=== PATIENT | female | born 1975 | race Caucasian/White ===

== ENCOUNTER → 2017-07-29 | Outpatient (CLI) | payer OTHER | END | disposition home or self-care (01) | LOC: RADECHMAIN 13:01 | PROVIDERS: ATTEND Internal Medicine | DX: R55 Syncope and collapse (principal) | CPT/HCPCS: 93225; 93226 ==

== ENCOUNTER → 2020-04-23 | Outpatient (CLI) | payer OTHER ==
--- NOTE | 2020-04-24 08:31 | MM ---
Reason for exam: screening (asymptomatic). Baseline mammogram. History: Patient has history of other cancer at age 36. Physical Findings: Nurse did not find any significant physical abnormalities on exam. MG Screening Mammo w CAD Bilateral CC, MLO, and XCCL view(s) were taken. The breast tissue is heterogeneously dense. This may lower the sensitivity of mammography. Focal asymmetry right CC, not on XCCL. These results were verbally communicated with the patient and result sheet given to the patient on 04/23/20. ASSESSMENT: Benign, BI-RAD 2 RECOMMENDATION: Routine screening mammogram of both breasts in 1 year.
== END | disposition home or self-care (01) ==
LOC: RADMAMWWP 13:28
PROVIDERS: ATTEND Obstetrics & Gynecology
DX: Z12.31 Encounter for screening mammogram for malignant neoplasm of breast (principal)
CPT/HCPCS: 77067

== ENCOUNTER 2021-01-13 17:18 | Emergency (ER) | payer OTHER ==
[2021-01-13 18:33] VITALS: RESP 18; TEMP 98.6
[2021-01-13 19:06] LABS: Basophils % (A) 0 %; Eosinophils # (A) 0.2 k/uL (0-0.7); Eosinophils % (A) 2 %; HCT 39.9 % (34.0-46.0); HGB 13.7 gm/dL (11.4-16.0); Lymphocytes # (A) 1.9 k/uL (1.0-4.8); Lymphocytes % (A) 22 %; MCHC 34.4 g/dL (31.0-37.0); Mean Platelet Volume 7.9; Monocytes # (A) 0.4 k/uL (0-1.0); Monocytes % (A) 4 %; Neutrophils # (A) 6.1 k/uL (1.3-7.7); Neutrophils % (A) 70 %; Platelet Count 326 k/uL (150-450); RBC 4.29 m/uL (3.80-5.40); RDW 12.4 % (11.5-15.5); WBC 8.8 k/uL (3.8-10.6)
[2021-01-13 19:19] LABS: ALT 11 U/L (4-34); AST 17 U/L (14-36); African American GFR (CKD) >90 (>60 ml/min/1.73 sqM); Albumin 4.2 g/dL (3.5-5.0); Alkaline Phosphatase 101 U/L (38-126); Anion Gap 7 mmol/L; Blood Urea Nitrogen 22 mg/dL (7-17); Calcium 9.3 mg/dL (8.4-10.2); Carbon Dioxide 26 mmol/L (22-30); Chloride 105 mmol/L (98-107); Glucose 87 mg/dL (74-99); Non-African American GFR(CKD) 79 (>60 ml/min/1.73 sqM); Potassium 4.1 mmol/L (3.5-5.1); Sodium 138 mmol/L (137-145); Total Bilirubin 0.2 mg/dL (0.2-1.3); Total Protein 6.8 g/dL (6.3-8.2)
[2021-01-13 20:02] LABS: Appearance,Urine Clear (Clear); Bilirubin,Urine Negative (Negative); Blood,Urine Large (Negative); Color,Urine Red; Glucose,Urine (UA) Negative (Negative); Hyaline Casts,Urine 11 /lpf (0-2); Ketones,Urine Trace (Negative); Leukocyte Esterase,Urine Small (Negative); Mucus,Urine Moderate /hpf; Nitrite,Urine Negative (Negative); Protein,Urine 1+ (Negative); RBC,Urine >182 /hpf (0-5); Urobilinogen,Urine <2.0 mg/dL (<2.0); WBC,Urine 20 /hpf (0-5)
--- NOTE | 2021-01-13 20:32 | ED ---
General Adult HPI - General Chief complaint: Vaginal Bleeding Stated complaint: Blood in stool and urine Time Seen by Provider: 01/13/21 19:28 Source: patient Mode of arrival: ambulatory Limitations: no limitations - History of Present Illness Initial comments: 45-year-old female patient presents to the emergency department today for evaluation of vaginal bleeding and rectal bleeding. Patient states that she has been having vaginal bleeding for the last 3 weeks. States she started her period a little early. States that her period stopped after a few days and then restarted again. States it has been spotty. States her last 2-3 days she has been having heavier bleeding. Denies any passage of blood clots. States this length of bleeding is unusual for her. Denies chance of . States that she is also had blood per rectum with wiping. Denies any bloody stool. Denies any black stool. States she does have internal hemorrhoids but they generally do not bleed. Denies any rectal pain. States she is having some pelvic pain and cramping. Denies any history of blood clotting disorders. Patient denies any recent rash, fever, chills, cough, shortness of breath, chest pain, nausea, vomiting, diarrhea, constipation, back pain, numbness, tingling, dizziness, weakness, hematuria, dysuria, urinary urgency, urinary frequency, headache, visual changes, or any other complaints. - Related Data Home Medications Medication Instructions Recorded Confirmed Loratadine 10 mg PO DAILY 01/13/21 01/13/21 Omeprazole 20 mg PO Q48H 01/13/21 01/13/21 Rephresh Pro B 1 cap PO DAILY 01/13/21 01/13/21 Allergies Allergy/AdvReac Type Severity Reaction Status Date / Time latex Allergy Rash/Hives Verified 01/13/21 20:41 Sulfa (Sulfonamide Allergy Swelling Verified 01/13/21 20:41 Antibiotics) Penicillins AdvReac Unknown Verified 01/13/21 20:41 Childhood Review of Systems ROS Statement: Those systems with pertinent positive or pertinent negative responses have been documented in the HPI. ROS Other: All systems not noted in ROS Statement are negative. Past Medical History Additional Past Medical History / Comment(s): hx heart murmer, endometriosis, uterine fibroid History of Any Multi-Drug Resistant Organisms: None Reported Additional Past Surgical History / Comment(s): removal extra ureter as infant, laproscopy x 2, rt salpingectomy, skin lesion removed Past Anesthesia/Blood Transfusion Reactions: No Reported Reaction Past Psychological History: No Psychological Hx Reported Smoking Status: Never smoker Past Alcohol Use History: None Reported Past Drug Use History: None Reported - Past Family History Father Family Medical History: Cancer General Exam Limitations: no limitations General appearance: alert, in no apparent distress, other (This is a well- developed, well-nourished adult female patient in no acute distress. Vital signs upon presentation are temperature 98.6F, pulse 83, respirations 18, blood pressure 135/85, pulse ox 100% on room air.) Respiratory exam: Present: normal lung sounds bilaterally. Absent: respiratory distress, wheezes, rales, rhonchi, stridor Cardiovascular Exam: Present: regular rate, normal rhythm, normal heart sounds. Absent: systolic murmur, diastolic murmur, rubs, gallop, clicks GI/Abdominal exam: Present: soft, normal bowel sounds. Absent: distended, tenderness, guarding, rebound, rigid Neurological exam: Present: alert, oriented X3, CN II-XII intact Psychiatric exam: Present: normal affect, normal mood Skin exam: Present: warm, dry, intact, normal color. Absent: rash Course Vital Signs 01/13/21 01/13/21 18:28 23:17 Temperature 98.6 F Pulse Rate 83 82 Respiratory 18 18 Rate Blood Pressure 135/85 140/82 O2 Sat by Pulse 100 98 Oximetry Medical Decision Making - Medical Decision Making 45-year-old female patient presents the emergency department today for evaluation of vaginal bleeding and rectal bleeding. Physical examination did reveal soft nontender abdomen. Labs reviewed and revealed normal CBC. U rinalysis shows large amount of blood consistent with vaginal bleeding. She is not . I did perform the exam difficult blood which was positive. No drink blood noted. Ultrasound of the pelvis was obtained and did reveal possible uterine fibroid, left ovarian cyst, normal endometrium. I did discuss findings results with the patient. To be discharged from the GI specialty for further evaluation of rectal bleeding. She is instructed to follow-up with her application penetration tester for further evaluation as soon as possible. Return parameters were discussed in detail. She verbalizes understanding and agrees with this plan. Case discussed with my attending Dr. Hurley. - Lab Data Result diagrams: 01/13/21 18:58 01/13/21 18:58 Lab Results 01/13/21 01/13/21 01/13/21 Range/Units 18:58 18:58 18:58 WBC 8.8 (3.8-10.6) k/uL RBC 4.29 (3.80-5.40) m/uL Hgb 13.7 (11.4-16.0) gm/dL Hct 39.9 (34.0-46.0) % MCV 93.0 (80.0-100.0) fL MCH 32.0 (25.0-35.0) pg MCHC 34.4 (31.0-37.0) g/dL RDW 12.4 (11.5-15.5) % Plt Count 326 (150-450) k/uL MPV 7.9 Neutrophils % 70 % Lymphocytes % 22 % Monocytes % 4 % Eosinophils % 2 % Basophils % 0 % Neutrophils # 6.1 (1.3-7.7) k/uL Lymphocytes # 1.9 (1.0-4.8) k/uL Monocytes # 0.4 (0-1.0) k/uL Eosinophils # 0.2 (0-0.7) k/uL Basophils # 0.0 (0-0.2) k/uL APTT 25.0 (22.0-30.0) sec Sodium 138 (137-145) mmol/L Potassium 4.1 (3.5-5.1) mmol/L Chloride 105 (98-107) mmol/L Carbon Dioxide 26 (22-30) mmol/L Anion Gap 7 mmol/L BUN 22 H (7-17) mg/dL Creatinine 0.89 (0.52-1.04) mg/dL Est GFR (CKD-EPI)AfAm >90 (>60 ml/min/1.73 sqM) Est GFR (CKD-EPI)NonAf 79 (>60 ml/min/1.73 sqM) Glucose 87 (74-99) mg/dL Calcium 9.3 (8.4-10.2) mg/dL Total Bilirubin 0.2 (0.2-1.3) mg/dL AST 17 (14-36) U/L ALT 11 (4-34) U/L Alkaline Phosphatase 101 (38-126) U/L Troponin I (0.000-0.034) ng/mL Total Protein 6.8 (6.3-8.2) g/dL Albumin 4.2 (3.5-5.0) g/dL Urine Color Urine Appearance (Clear) Urine pH (5.0-8.0) Ur Specific [place] (1.001-1.035) Urine Protein (Negative) Urine Glucose (UA) (Negative) Urine Ketones (Negative) Urine Blood (Negative) Urine Nitrite (Negative) Urine Bilirubin (Negative) Urine Urobilinogen (<2.0) mg/dL Ur Leukocyte Esterase (Negative) Urine RBC (0-5) /hpf Urine WBC (0-5) /hpf Hyaline Casts (0-2) /lpf Urine Mucus (None) /hpf Urine HCG, Qual (Not Detectd) Stool Occult Blood (Negative) 01/13/21 01/13/21 01/13/21 Range/Units 18:58 18:58 18:58 WBC (3.8-10.6) k/uL RBC (3.80-5.40) m/uL Hgb (11.4-16.0) gm/dL Hct (34.0-46.0) % MCV (80.0-100.0) fL MCH (25.0-35.0) pg MCHC (31.0-37.0) g/dL RDW (11.5-15.5) % Plt Count (150-450) k/uL MPV Neutrophils % % Lymphocytes % % Monocytes % % Eosinophils % % Basophils % % Neutrophils # (1.3-7.7) k/uL Lymphocytes # (1.0-4.8) k/uL Monocytes # (0-1.0) k/uL Eosinophils # (0-0.7) k/uL Basophils # (0-0.2) k/uL APTT (22.0-30.0) sec Sodium (137-145) mmol/L Potassium (3.5-5.1) mmol/L Chloride (98-107) mmol/L Carbon Dioxide (22-30) mmol/L Anion Gap mmol/L BUN (7-17) mg/dL Creatinine (0.52-1.04) mg/dL Est GFR (CKD-EPI)AfAm (>60 ml/min/1.73 sqM) Est GFR (CKD-EPI)NonAf (>60 ml/min/1.73 sqM) Glucose (74-99) mg/dL Calcium (8.4-10.2) mg/dL Total Bilirubin (0.2-1.3) mg/dL AST (14-36) U/L ALT (4-34) U/L Alkaline Phosphatase (38-126) U/L Troponin I <0.012 (0.000-0.034) ng/mL Total Protein (6.3-8.2) g/dL Albumin (3.5-5.0) g/dL Urine Color Red Urine Appearance Clear (Clear) Urine pH 5.0 (5.0-8.0) Ur Specific [place] 1.030 (1.001-1.035) Urine Protein 1+ H (Negative) Urine Glucose (UA) Negative (Negative) Urine Ketones Trace H (Negative) Urine Blood Large H (Negative) Urine Nitrite Negative (Negative) Urine Bilirubin Negative (Negative) Urine Urobilinogen <2.0 (<2.0) mg/dL Ur Leukocyte Esterase Small H (Negative) Urine RBC >182 H (0-5) /hpf Urine WBC 20 H (0-5) /hpf Hyaline Casts 11 H (0-2) /lpf Urine Mucus Moderate H (None) /hpf Urine HCG, Qual Not Detected (Not Detectd) Stool Occult Blood (Negative) 01/13/21 Range/Units 20:13 WBC (3.8-10.6) k/uL RBC (3.80-5.40) m/uL Hgb (11.4-16.0) gm/dL Hct (34.0-46.0) % MCV (80.0-100.0) fL MCH (25.0-35.0) pg MCHC (31.0-37.0) g/dL RDW (11.5-15.5) % Plt Count (150-450) k/uL MPV Neutrophils % % Lymphocytes % % Monocytes % % Eosinophils % % Basophils % % Neutrophils # (1.3-7.7) k/uL Lymphocytes # (1.0-4.8) k/uL Monocytes # (0-1.0) k/uL Eosinophils # (0-0.7) k/uL Basophils # (0-0.2) k/uL APTT (22.0-30.0) sec Sodium (137-145) mmol/L Potassium (3.5-5.1) mmol/L Chloride (98-107) mmol/L Carbon Dioxide (22-30) mmol/L Anion Gap mmol/L BUN (7-17) mg/dL Creatinine (0.52-1.04) mg/dL Est GFR (CKD-EPI)AfAm (>60 ml/min/1.73 sqM) Est GFR (CKD-EPI)NonAf (>60 ml/min/1.73 sqM) Glucose (74-99) mg/dL Calcium (8.4-10.2) mg/dL Total Bilirubin (0.2-1.3) mg/dL AST (14-36) U/L ALT (4-34) U/L Alkaline Phosphatase (38-126) U/L Troponin I (0.000-0.034) ng/mL Total Protein (6.3-8.2) g/dL Albumin (3.5-5.0) g/dL Urine Color Urine Appearance (Clear) Urine pH (5.0-8.0) Ur Specific [place] (1.001-1.035) Urine Protein (Negative) Urine Glucose (UA) (Negative) Urine Ketones (Negative) Urine Blood (Negative) Urine Nitrite (Negative) Urine Bilirubin (Negative) Urine Urobilinogen (<2.0) mg/dL Ur Leukocyte Esterase (Negative) Urine RBC (0-5) /hpf Urine WBC (0-5) /hpf Hyaline Casts (0-2) /lpf Urine Mucus (None) /hpf Urine HCG, Qual (Not Detectd) Stool Occult Blood Positive H (Negative) - Radiology Data Radiology results: report reviewed, image reviewed Ultrasound of the pelvis is obtained. Report is reviewed in its entirety. Impression shows homogenous uterine myometrium with normal endometrial thickness. Question once elevated fibroid in the anterior uterine wall. No evidence of left ovarian torsion. Simple left ovarian cyst measuring up to 3.7 cm. The right ovary was not visualized. Nabothian cysts. Transvaginal imaging confirms the above findings. Disposition Clinical Impression: Rectal bleeding, Ovarian cyst, Uterine fibroid Disposition: HOME SELF-CARE Condition: Good Instructions (If sedation given, give patient instructions): Dysfunctional Uterine Bleeding (ED), Ovarian Cyst (ED), Rectal Bleeding (ED) Additional Instructions: Follow up with GI specialist or general surgery for colonoscopy for further evaluation of the rectal bleeding. Follow up with gynecology for further evaluation of your dysfunctional uterine bleed. Inform them you were found to have uterine fibroids and an ovarian cyst on ultrasound. Take Tylenol for pain control. Return to the emergency department for any new, worsening, or concerning symptoms. Is patient prescribed a controlled substance at d/c from ED?: No Referrals: Emily Perez MD [Primary Care Provider] - 1-2 days Galindo Petty MD [STAFF PHYSICIAN] - 1-2 days Time of Disposition: 22:31
--- NOTE | 2021-01-13 22:25 | US ---
EXAMINATION TYPE: US transvaginal DATE OF EXAM: 01/13/2021 COMPARISON: NONE CLINICAL HISTORY: Abnormal vaginal bleeding; pelvic pain. Vaginal bleeding and pelvic pain. Hx surger y for endometriosis, right fallopian tube removed, 1 miscarriage, 2 abortions. . TECHNIQUE: Transvaginal (TV). Date of LMP: Unknown. EXAM MEASUREMENTS: Uterus: 9.0 x 5.6 x 4.9 cm Endometrial Stripe: 0.64 cm Right Ovary: Not visualized. Left Ovary: 4.5 x 3.1 x 2.2 cm 1. Uterus: Anteverted Heterogeneous, hypoechoic area seen measuring 1.1 x 1.1 x 0.8 cm. Multiple a nechoic areas seen in cervix, largest measures: 0.8 x 0.8 x 0.9 cm. 2. Endometrium: Measures 0.64 cm. 3. Right Ovary: Not visualized. 4. Left Ovary: Appears to be enlarged. Anechoic area seen measuring 3.7 x 3.1 x 2.1 cm. Hyperechoic area seen measuring 0.5 x 0.4 x 0.5 cm. Spectral, color and waveform doppler imaging shows arterial and venous flow within the left ovary. Right ovary not visualized. 5. Bilateral Adnexa: Appear wnl. 6. Posterior cul-de-sac: Appears wnl. IMPRESSION: 1. Homogenous uterine myometrium with normal endometrial thickness. 2. Question 1cm fibroid in the anterior uterine wall. 3. No evidence of left ovarian torsion. 4. Simple left ovarian cyst measuring up to 3.7cm. 5. The right ovary was not visualized. 6. Nabothian cysts. 7. Transvaginal imaging confirms the above findings.
[2021-01-13 23:18] VITALS: BP 140/82; PULSE 82
== END 2021-01-13 23:18 | disposition home or self-care (01) ==
LOC: EC 17:18
DX: K62.5 Hemorrhage of anus and rectum (principal); N83.202 Unspecified ovarian cyst, left side; D25.9 Leiomyoma of uterus, unspecified; Z90.79 Acquired absence of other genital organ(s)
CPT/HCPCS: 36415; 76830; 80053; 81001; 81025; 82272; 84484; 85025; 85730; 93975; 93976; 99284

== ENCOUNTER → 2021-03-13 | Outpatient (CLI) | payer OTHER ==
[2021-03-13 16:44] LABS: Basophils % (A) 0 %; Eosinophils # (A) 0.1 k/uL (0-0.7); Eosinophils % (A) 2 %; HCT 38.3 % (34.0-46.0); HGB 13.2 gm/dL (11.4-16.0); Lymphocytes # (A) 1.8 k/uL (1.0-4.8); Lymphocytes % (A) 25 %; MCH 32.3 pg (25.0-35.0); MCHC 34.4 g/dL (31.0-37.0); MCV 93.8 fL (80.0-100.0); Mean Platelet Volume 7.9; Monocytes # (A) 0.3 k/uL (0-1.0); Monocytes % (A) 4 %; Neutrophils # (A) 4.9 k/uL (1.3-7.7); Neutrophils % (A) 69 %; Platelet Count 290 k/uL (150-450); RBC 4.08 m/uL (3.80-5.40); RDW 11.5 % (11.5-15.5); WBC 7.2 k/uL (3.8-10.6)
== END | disposition home or self-care (01) ==
LOC: LABPAT 15:56
PROVIDERS: ATTEND Obstetrics & Gynecology
DX: Z01.812 Encounter for preprocedural laboratory examination (principal); N93.8 Other specified abnormal uterine and vaginal bleeding
CPT/HCPCS: 85025

== ENCOUNTER 2021-03-18 06:32 | Day surgery (SDC) | payer OTHER ==
[2021-03-14 15:50] VITALS: BMI 33.5
[~2021-03-18 06:32] MED LIST: DEXAMETHASONE SOD PHOSPHATE 4 MG/ML 1 ML VIAL IV ONE; LIDOCAINE 1% (10MG/ML) FOR IV START INTRADERMA PRN; ONDANSETRON 4 MG/2 ML VIAL IVP ONE; Pre Op ABX Message 1 EACH MISC MISCELLANE ONE; SCOPOLAMINE 1.5MG/72HR PATCH TRANSDERM ONE
[2021-03-18] MEDS ORDERED: HYDROmorphone 0.5 MG/0.5 ML SYRINGE IVP PRN (07:00)
[2021-03-18] MEDS: LACTATED RINGERS 1,000 ML IV SCH ×2 (07:05→07:30)
[2021-03-18] MEDS ORDERED: SUCCINYLCHOLINE CHLORIDE 100 MG/5 ML SYR IV ONE (07:25)
[2021-03-18] MEDS ORDERED: MIDAZOLAM 2 MG/2 ML VIAL ONE (07:25)
[2021-03-18] MEDS ORDERED: KETOROLAC 15 MG/ML 1 ML VIAL ONE (07:25)
[2021-03-18] MEDS ORDERED: LIDOCAINE 1% INJ 10MG/ML (20 ML MDV) ONE (07:25)
[2021-03-18] MEDS ORDERED: fentaNYL (PF) 50 MCG/ML 2 ML AMP ONE (07:25)
[2021-03-18] MEDS ORDERED: PROPOFOL 10 MG/ML 20 ML VIAL IV ONE (07:25)
[2021-03-18] MEDS ORDERED: LIDOCAINE 1%-EPI 1:100,000 20 ML VIAL SQ ONE ×2 (07:37)
--- NOTE | 2021-03-18 08:11 | P.OP ---
Date of Procedure: 03/18/21 Preoperative Diagnosis: Dysfunctional uterine bleeding Postoperative Diagnosis: Same Procedure(s) Performed: Diagnostic hysteroscopy with NovaSure endometrial ablation Anesthesia: JACQUELYN Surgeon: Elida Zimmerman Estimated Blood Loss (ml): 5 IV fluids (ml): 400 Urine output (ml): 50 Pathology: none sent Condition: stable Disposition: PACU Indications for Procedure: dysfunctional uterine bleeding Operative Findings: Fluffy endometrium with clot and debris and the uterus. No gross intracavitary lesions. Description of Procedure: After the patient was met in the preoperative holding area and all questions were answered, she was taken to the operating room where anesthetic was administered without incident. Appropriate timeout procedure was undertaken. She was positioned, prepped and draped in the dorsal lithotomy position. Bladder was drained for 50 mL of clear urine. Speculum was placed in the vagina. The cervix is large and patulous. Cervix was grasped anteriorly with a single-tooth tenaculum and a paracervical block with lidocaine plus epinephrine was placed. Uterus was sounded to 8.5 cm. The cervix sequentially dilated to allow for passage of the diagnostic hysteroscope. The hysteroscope was introduced. The cavity was obscured with a large amount of clot and fluffy endometrium. No obvious intracavitary lesions were noted. Hysteroscope was removed and the cervix was further dilated to allow for passage of the NovaSure ablation device. Device was inserted with a cavity length of 4.5 cm, width of 4.3 cm. Cavity assessment test was passed without alarm. Device was enabled for treatment cycle the 120 seconds at a power of 106 W. Following cessation of the treatment cycle the device was removed and the hysteroscope was reintroduced. Complete desiccation of the endometrium was appreciated. Hysteroscope was removed as was the tenaculum. The cervix was observed and no active bleeding was noted. Speculum was removed. Patient was awoken from anesthetic without incident and transported to the recovery area in stable condition. All counts reported to me as correct.
[2021-03-18 08:19] VITALS: RESP 16; TEMP 96.9
[2021-03-18 09:54] VITALS: BP 136/82; PULSE 62
== END 2021-03-18 10:13 | disposition home or self-care (01) ==
LOC: OR 06:32
PROVIDERS: ATTEND Obstetrics & Gynecology
DX: N93.8 Other specified abnormal uterine and vaginal bleeding (principal); Z88.0 Allergy status to penicillin; Z88.2 Allergy status to sulfonamides; K21.9 Gastro-esophageal reflux disease without esophagitis; Z91.040 Latex allergy status
CPT/HCPCS: 58563; 81025; J2250; J1100; J2405; J2001; J3010; J1885; J0330; J2704

== ENCOUNTER → 2021-04-02 | Outpatient (CLI) | payer OTHER ==
--- NOTE | 2021-04-03 06:50 | CT ---
EXAMINATION TYPE: CT sinus wo con DATE OF EXAM: 04/02/2021 COMPARISON: NONE HISTORY: chronic sinusitis and nasal congestion CT DLP: 429.4 mGycm. Automated Exposure Control for Dose Reduction was Utilized. TECHNIQUE: CT scan of the sinuses is performed without contrast, axial images are obtained, coronal r eformatted images are also reviewed. FINDINGS: The paranasal sinuses including the frontal, ethmoid, sphenoid, and maxillary sinuses bila terally are well-aerated without abnormal opacification. The ostiomeatal complex is patent bilateral ly on the coronal images. Visualized portion of mastoid air cells show no abnormal opacification. The globes are intact bilate rally. Visualized portion of brain parenchyma is unremarkable. IMPRESSION: The sinuses are clear and the ostiomeatal complex is patent bilaterally.
== END | disposition home or self-care (01) ==
LOC: RADCTMAIN 17:22
PROVIDERS: ATTEND Otolaryngology
DX: J32.9 Chronic sinusitis, unspecified (principal); R09.89 Other specified symptoms and signs involving the circulatory and respiratory systems
CPT/HCPCS: 70486

== ENCOUNTER 2023-06-11 11:15 | Emergency (ER) | payer OTHER ==
--- NOTE | 2023-06-11 12:11 | ED ---
Abdominal Pain HPI - General Source: patient, RN notes reviewed Mode of arrival: ambulatory Limitations: no limitations <Ronald Finn - Last Filed: 06/11/23 12:10> <Whitney Taylor - Last Filed: 06/11/23 21:43> - General Chief Complaint: Abdominal Pain Stated Complaint: lower abd pain Time Seen by Provider: 06/11/23 12:10 - History of Present Illness Initial Comments: 47-year-old female presents emergency Department chief complaint left-sided abdominal pain. Patient states that the pain started last day or so. He states left lower quadrant. Patient's concerned about possible ovarian cyst or . She states she's had a prior ablation and does not have menstrual cycles. Denies any history of diverticulitis (Ronald Finn) 47-year-old female presents the emergency department reporting left lower pelvic pain. States it's been going on for the past day. Pain is worse with ambulation and palpation. She denies any vaginal bleeding or discharge. She has had an ablation. She denies concern for sexually transmitted infections. She denies diarrhea, consultation, black or bloody stools. Denies dysuria, hematuria or difficult voiding. States she has had this pain previously with ovarian cysts and is concerned with this as well as endometriosis. She has not taken anything for the pain. No fevers. No other alleviating, precipitating or modifying factors (Whitney Taylor) - Related Data Home Medications Medication Instructions Recorded Confirmed Loratadine 10 mg PO DAILY 01/13/21 03/14/21 Omeprazole 20 mg PO Q48H 01/13/21 03/14/21 Eczema Oil For Ears 5 drop BOTH EARS DAILY PRN 03/14/21 03/14/21 L.acidoph,Paracasei, B.lactis 1 each PO DAILY 03/14/21 03/14/21 [Probiotic] Allergies Allergy/AdvReac Type Severity Reaction Status Date / Time latex Allergy Rash/Hives Verified 06/11/23 11:54 Sulfa (Sulfonamide Allergy Swelling Verified 06/11/23 11:54 Antibiotics) Penicillins AdvReac Unknown Verified 06/11/23 11:54 Childhood Review of Systems ROS Other: All systems not noted in ROS Statement are negative. <Ronald Finn - Last Filed: 06/11/23 12:10> ROS Other: All systems not noted in ROS Statement are negative. <Whitney Taylor - Last Filed: 06/11/23 21:43> ROS Statement: Those systems with pertinent positive or pertinent negative responses have been documented in the HPI. Past Medical History Additional Past Medical History / Comment(s): hx heart murmer, endometriosis, uterine fibroid History of Any Multi-Drug Resistant Organisms: None Reported Additional Past Surgical History / Comment(s): removal extra ureter as infant, laproscopy x 2, rt salpingectomy, skin lesion removed Past Anesthesia/Blood Transfusion Reactions: No Reported Reaction Past Psychological History: No Psychological Hx Reported Smoking Status: Never smoker Past Alcohol Use History: None Reported Past Drug Use History: None Reported - Past Family History Father Family Medical History: Cancer <Ronald Finn - Last Filed: 06/11/23 12:10> General Exam Limitations: no limitations <Ronald Finn - Last Filed: 06/11/23 12:10> - General Exam Comments Initial Comments: Visual Physical Exam Vital signs reviewed General: Well-appearing, nontoxic, no acute distress. Head: Normocephalic, atraumatic Eyes: PERRLA, EOMI ENT: Airway patent Chest: Nonlabored breathing Skin: No visual rash, normal skin tone Neuro: Alert and oriented 3 Musculoskeletal: No gross abnormalities (Ronald Finn) Course Vital Signs 06/11/23 06/11/23 11:54 15:50 Temperature 97.8 F 98.0 F Pulse Rate 71 74 Respiratory 16 17 Rate Blood Pressure 146/84 138/78 O2 Sat by Pulse 100 98 Oximetry Medical Decision Making <Ronald Finn - Last Filed: 06/11/23 12:10> - Lab Data Result diagrams: 06/11/23 14:24 06/11/23 14:24 <Whitney Taylor - Last Filed: 06/11/23 21:43> - Medical Decision Making I completed the quick note portion of this chart signed Ronald Finn PA-C (Ronald Finn) Was pt. sent in by a medical professional or institution (ANGELO Hurley, REDUCING MACHINE OPERATOR, urgent care, hospital, or residential...) When possible be specific @ -No Did you speak to anyone other than the patient for history (EMS, parent, family, police, friend...)? What history was obtained from this source @ -No Did you review nursing and triage notes (agree or disagree)? Why? @ -I reviewed and agree with nursing and triage notes Were old charts reviewed (outside hosp., previous admission, EMS record, old EKG, old radiological studies, urgent care reports/EKG's, residential records)? Report findings @ -No old charts were reviewed Differential Diagnosis (chest pain, altered mental status, abdominal pain women, abdominal pain men, vaginal bleeding, weakness, fever, dyspnea, syncope, headache, dizziness, GI bleed, back pain, seizure, CVA, palpatations, mental health, musculoskeletal)? @ -not applicable EKG interpreted by me (3pts min.). @ -As above X-rays interpreted by me (1pt min.). @ -None done CT interpreted by me (1pt min.). @ -None done U/S interpreted by me (1pt. min.). @ -None done What testing was considered but not performed or refused? (CT, X-rays, U/S, labs)? Why? @ -None What meds were considered but not given or refused? Why? @ -None Did you discuss the management of the patient with other professionals (professionals i.e. , PA, REDUCING MACHINE OPERATOR, lab, RT, psych nurse, forensic social worker, scientific linguist, teacher, adult probation officer, adult protective caseworker)? Give summary @ -No Was smoking cessation discussed for >3mins.? @ -No Was critical care preformed (if so, how long)? @ -No Were there social determinants of health that impacted care today? How? (Homelessness, low income, unemployed, alcoholism, drug addiction, transportation, low edu. Level, literacy, decrease access to med. care, fdc, rehab)? @ -No Was there de-escalation of care discussed even if they declined (Discuss DNR or withdrawal of care, Hospice)? DNR status @ -No What co-morbidities impacted this encounter? (DM, HTN, Smoking, COPD, CAD, Cancer, CVA, ARF, Chemo, Hep., AIDS, mental health diagnosis, sleep apnea, morbid obesity)? @ -None Was patient admitted / discharged? Hospital course, mention meds given and route, prescriptions, significant lab abnormalities, going to OR and other pertinent info. @ -Upon arrival patient was seen in hallway 11. Thorough history and physical exam was performed. Laboratory studies are conducted. Urine sample is sent for analysis. Patient does go over for ultrasound. She is offered something for pain however refuses. Ultrasound demonstrates fibroid uterus. Patient is not . Results are discussed with the patient. She does follow with Dr. Lin. Instructed that she should follow-up with him for further management of her pain and return for any new or worsening symptoms. Patient agreeable with plan and was discharged in stable condition Undiagnosed new problem with uncertain prognosis? @ -No Drug Therapy requiring intensive monitoring for toxicity (Heparin, Nitro, Insulin, Cardizem)? @ -No Were any procedures done? @ -No Diagnosis/symptom? @ -default Acute, or Chronic, or Acute on Chronic? @ -default Uncomplicated (without systemic symptoms) or Complicated (systemic symptoms)? @ -default Side effects of treatment? @ -No Exacerbation, Progression, or Severe Exacerbation? @ -No Poses a threat to life or bodily function? How? (Chest pain, USA, RI, pneumonia, PE, COPD, DKA, ARF, appy, cholecystitis, CVA, Diverticulitis, Homicidal, Suicidal, threat to staff... and all critical care pts) @ -No (Whitney Taylor) - Lab Data Lab Results 06/11/23 06/11/23 06/11/23 Range/Units 14:20 14:20 14:24 WBC 7.2 (3.8-10.6) k/uL RBC 4.48 (3.80-5.40) m/uL Hgb 13.8 (11.4-16.0) gm/dL Hct 40.2 (34.0-46.0) % MCV 89.8 (80.0-100.0) fL MCH 30.8 (25.0-35.0) pg MCHC 34.3 (31.0-37.0) g/dL RDW 11.8 (11.5-15.5) % Plt Count 264 (150-450) k/uL MPV 7.8 Neutrophils % 68 % Lymphocytes % 25 % Monocytes % 4 % Eosinophils % 1 % Basophils % 0 % Neutrophils # 4.9 (1.3-7.7) k/uL Lymphocytes # 1.8 (1.0-4.8) k/uL Monocytes # 0.3 (0-1.0) k/uL Eosinophils # 0.1 (0-0.7) k/uL Basophils # 0.0 (0-0.2) k/uL Sodium (137-145) mmol/L Potassium (3.5-5.1) mmol/L Chloride (98-107) mmol/L Carbon Dioxide (22-30) mmol/L Anion Gap mmol/L BUN (7-17) mg/dL Creatinine (0.52-1.04) mg/dL Est GFR (CKD-EPI)AfAm (>60 ml/min/1.73 sqM) Est GFR (CKD-EPI)NonAf (>60 ml/min/1.73 sqM) Glucose (74-99) mg/dL Calcium (8.4-10.2) mg/dL Total Bilirubin (0.2-1.3) mg/dL AST (14-36) U/L ALT (4-34) U/L Alkaline Phosphatase (38-126) U/L Total Protein (6.3-8.2) g/dL Albumin (3.5-5.0) g/dL Lipase (23-300) U/L Urine Color Yellow Urine Appearance Cloudy H (Clear) Urine pH 5.5 (5.0-8.0) Ur Specific Conway 1.034 (1.001-1.035) Urine Protein 1+ H (Negative) Urine Glucose (UA) Negative (Negative) Urine Ketones Negative (Negative) Urine Blood Negative (Negative) Urine Nitrite Negative (Negative) Urine Bilirubin Negative (Negative) Urine Urobilinogen 2.0 (<2.0) mg/dL Ur Leukocyte Esterase Small H (Negative) Urine RBC 1 (0-5) /hpf Urine WBC 4 (0-5) /hpf Ur Squamous Epith Cells 8 H (0-4) /hpf Urine Bacteria Rare H (None) /hpf Hyaline Casts 1 (0-2) /lpf Urine Mucus Many H (None) /hpf Urine HCG, Qual Not Detected (Not Detectd) 06/11/23 Range/Units 14:24 WBC (3.8-10.6) k/uL RBC (3.80-5.40) m/uL Hgb (11.4-16.0) gm/dL Hct (34.0-46.0) % MCV (80.0-100.0) fL MCH (25.0-35.0) pg MCHC (31.0-37.0) g/dL RDW (11.5-15.5) % Plt Count (150-450) k/uL MPV Neutrophils % % Lymphocytes % % Monocytes % % Eosinophils % % Basophils % % Neutrophils # (1.3-7.7) k/uL Lymphocytes # (1.0-4.8) k/uL Monocytes # (0-1.0) k/uL Eosinophils # (0-0.7) k/uL Basophils # (0-0.2) k/uL Sodium 141 (137-145) mmol/L Potassium 4.0 (3.5-5.1) mmol/L Chloride 104 (98-107) mmol/L Carbon Dioxide 23 (22-30) mmol/L Anion Gap 14 mmol/L BUN 14 (7-17) mg/dL Creatinine 0.73 (0.52-1.04) mg/dL Est GFR (CKD-EPI)AfAm >90 (>60 ml/min/1.73 sqM) Est GFR (CKD-EPI)NonAf >90 (>60 ml/min/1.73 sqM) Glucose 94 (74-99) mg/dL Calcium 9.2 (8.4-10.2) mg/dL Total Bilirubin 0.6 (0.2-1.3) mg/dL AST 18 (14-36) U/L ALT 13 (4-34) U/L Alkaline Phosphatase 99 (38-126) U/L Total Protein 7.1 (6.3-8.2) g/dL Albumin 4.1 (3.5-5.0) g/dL Lipase 96 (23-300) U/L Urine Color Urine Appearance (Clear) Urine pH (5.0-8.0) Ur Specific Conway (1.001-1.035) Urine Protein (Negative) Urine Glucose (UA) (Negative) Urine Ketones (Negative) Urine Blood (Negative) Urine Nitrite (Negative) Urine Bilirubin (Negative) Urine Urobilinogen (<2.0) mg/dL Ur Leukocyte Esterase (Negative) Urine RBC (0-5) /hpf Urine WBC (0-5) /hpf Ur Squamous Epith Cells (0-4) /hpf Urine Bacteria (None) /hpf Hyaline Casts (0-2) /lpf Urine Mucus (None) /hpf Urine HCG, Qual (Not Detectd) Disposition <Ronald Finn - Last Filed: 06/11/23 12:10> Is patient prescribed a controlled substance at d/c from ED?: No Time of Disposition: 14:57 <Whitney Taylor - Last Filed: 06/11/23 21:43> Clinical Impression: Pelvic pain, Fibroid uterus Disposition: HOME SELF-CARE Condition: Stable Instructions (If sedation given, give patient instructions): Pelvic Pain in Women (ED) Additional Instructions: You have fibroids in your uterus. Please see your obgyn for management of this pain. Return for any new or worsening symptoms. Referrals: None,Stated [Primary Care Provider] - 1-2 days Axel Henderson MD [STAFF PHYSICIAN] - 1-2 days
--- NOTE | 2023-06-11 13:23 | US ---
EXAMINATION TYPE: US transvaginal DATE OF EXAM: 06/11/2023 COMPARISON: NONE CLINICAL INDICATION: Female, 47 years old with history of pain; lt side pain since last night, worse when walking TECHNIQUE: Transvaginal (TV). Transabdominal sonographic images of the pelvis were acquired. Trans vaginal sonographic images were medically necessary to better assess the following anatomy: Ovaries Date of LMP: ablation EXAM MEASUREMENTS: Uterus: 7.8x4.2x5.4 cm Endometrial Stripe: 0.3 cm Right Ovary: not visualized Left Ovary: 2.8x1.7x1.7 cm 1. Uterus: Anteverted heterogenous with several fibroids, largest measures 0.9x0.8x1.0cm 2. Endometrium: 0.3 3. Right Ovary: Obscured by overlying bowel gas 4. Left Ovary: dominant follicle Spectral, color and waveform doppler imaging shows good arterial and venous flow within the ovaries ; there is no evidence for ovarian torsion. 5. Bilateral Adnexa: Obscured by overlying bowel gas 6. Posterior cul-de-sac: free fluid noted right adnexa/ cul de sac exam limited by bowel gas IMPRESSION: 1. Uterine fibroid 2. Minimal free fluid this can be physiologic.
[2023-06-11 14:27] LABS: Appearance,Urine Cloudy (Clear); Bacteria,Urine Rare /hpf; Bilirubin,Urine Negative (Negative); Blood,Urine Negative (Negative); Color,Urine Yellow; Glucose,Urine (UA) Negative (Negative); Hyaline Casts,Urine 1 /lpf (0-2); Ketones,Urine Negative (Negative); Leukocyte Esterase,Urine Small (Negative); Mucus,Urine Many /hpf; Nitrite,Urine Negative (Negative); PH, Urine 5.5 (5.0-8.0); Protein,Urine 1+ (Negative); RBC,Urine 1 /hpf (0-5); Specific Gravity,Urine 1.034 (1.001-1.035); Squamous Epithelial Cell,Urine 8 /hpf (0-4); WBC,Urine 4 /hpf (0-5)
[2023-06-11 14:41] LABS: Basophils % (A) 0 %; Eosinophils # (A) 0.1 k/uL (0-0.7); Eosinophils % (A) 1 %; HCT 40.2 % (34.0-46.0); HGB 13.8 gm/dL (11.4-16.0); Lymphocytes # (A) 1.8 k/uL (1.0-4.8); Lymphocytes % (A) 25 %; MCH 30.8 pg (25.0-35.0); MCHC 34.3 g/dL (31.0-37.0); MCV 89.8 fL (80.0-100.0); Mean Platelet Volume 7.8; Monocytes # (A) 0.3 k/uL (0-1.0); Monocytes % (A) 4 %; Neutrophils # (A) 4.9 k/uL (1.3-7.7); Neutrophils % (A) 68 %; Platelet Count 264 k/uL (150-450); RBC 4.48 m/uL (3.80-5.40); RDW 11.8 % (11.5-15.5); WBC 7.2 k/uL (3.8-10.6)
[2023-06-11 14:47] LABS: ALT 13 U/L (4-34); AST 18 U/L (14-36); African American GFR (CKD) >90 (>60 ml/min/1.73 sqM); Albumin 4.1 g/dL (3.5-5.0); Alkaline Phosphatase 99 U/L (38-126); Anion Gap 14 mmol/L; Blood Urea Nitrogen 14 mg/dL (7-17); Calcium 9.2 mg/dL (8.4-10.2); Carbon Dioxide 23 mmol/L (22-30); Chloride 104 mmol/L (98-107); Glucose 94 mg/dL (74-99); Lipase 96 U/L (23-300); Non-African American GFR(CKD) >90 (>60 ml/min/1.73 sqM); Sodium 141 mmol/L (137-145); Total Bilirubin 0.6 mg/dL (0.2-1.3); Total Protein 7.1 g/dL (6.3-8.2)
[2023-06-11 16:19] VITALS: BP 138/78; PULSE 74; RESP 17; TEMP 98
== END 2023-06-11 15:51 | disposition home or self-care (01) ==
LOC: EC 11:15
DX: D25.9 Leiomyoma of uterus, unspecified (principal); Z88.2 Allergy status to sulfonamides; Z88.0 Allergy status to penicillin; Z91.040 Latex allergy status
CPT/HCPCS: 36415; 76830; 80053; 81001; 81025; 83690; 85025; 99284

== ENCOUNTER 2023-10-02 17:25 | Inpatient (IN) | payer BC, OTHER ==
[2023-10-02] MEDS: KETOROLAC 15 MG/ML 1 ML VIAL IVP STA (19:38)
[2023-10-02] MEDS: MORPHINE SULFATE 4 MG/ML SYRINGE IVP STA (19:39)
--- NOTE | 2023-10-02 19:41 | ED ---
ENT HPI - General Chief complaint: Dental/Oral Stated complaint: Oral Pain Time Seen by Provider: 10/02/23 18:20 Source: patient Mode of arrival: ambulatory Limitations: no limitations - History of Present Illness Initial comments: 48-year-old female presenting with chief complaint of right-sided jaw pain. Patient reports that she was at the dentist on Wednesday. She was receiving a filling to the left side. On she started having pain and swelling to the right sided jaw. Pain and swelling has been worsening. Patient is now unable to eat or take her medications. Patient admits to frequently grinding her teeth. She does follow regularly with a dentist. Her next appointment with is on Wednesday. No difficulty breathing. Patient states that she has been spitting out her saliva rather than swallowing. She feels like her voice does sound somewhat different. - Related Data Home Medications Medication Instructions Recorded Confirmed Loratadine 10 mg PO DAILY 01/13/21 03/14/21 Omeprazole 20 mg PO Q48H 01/13/21 03/14/21 Eczema Oil For Ears 5 drop BOTH EARS DAILY PRN 03/14/21 03/14/21 L.acidoph,Paracasei, B.lactis 1 each PO DAILY 03/14/21 03/14/21 [Probiotic] Allergies Allergy/AdvReac Type Severity Reaction Status Date / Time latex Allergy Rash/Hives Verified 06/11/23 11:54 Sulfa (Sulfonamide Allergy Swelling Verified 06/11/23 11:54 Antibiotics) Penicillins AdvReac Unknown Verified 06/11/23 11:54 Childhood Review of Systems ROS Statement: Those systems with pertinent positive or pertinent negative responses have been documented in the HPI. ROS Other: All systems not noted in ROS Statement are negative. Past Medical History Additional Past Medical History / Comment(s): hx heart murmer, endometriosis, uterine fibroid History of Any Multi-Drug Resistant Organisms: None Reported Additional Past Surgical History / Comment(s): removal extra ureter as infant, laproscopy x 2, rt salpingectomy, skin lesion removed Past Anesthesia/Blood Transfusion Reactions: No Reported Reaction Past Psychological History: No Psychological Hx Reported Smoking Status: Never smoker Past Alcohol Use History: None Reported Past Drug Use History: None Reported - Past Family History Father Family Medical History: Cancer General Exam Limitations: no limitations General appearance: alert, in no apparent distress Head exam: Present: atraumatic, normocephalic Eye exam: Present: normal appearance, EOMI Expanded Mouth exam: Present: trismus, other (Limited examination due to the patient's trismus.) Neck exam: Present: normal inspection. Absent: meningismus Respiratory exam: Present: normal lung sounds bilaterally. Absent: respiratory distress, wheezes, rales, rhonchi, stridor Cardiovascular Exam: Present: regular rate, normal rhythm, normal heart sounds. Absent: systolic murmur, diastolic murmur, rubs, gallop, clicks Neurological exam: Present: alert, oriented X3 Psychiatric exam: Present: normal affect, normal mood Skin exam: Present: warm, dry Course Vital Signs 10/02/23 10/02/23 10/03/23 17:47 23:30 01:32 Temperature 98.7 F 98.1 F 98.9 F Pulse Rate 84 75 72 Respiratory 18 18 18 Rate Blood Pressure 160/76 112/64 131/53 O2 Sat by Pulse 99 99 98 Oximetry Medical Decision Making - Medical Decision Making Was pt. sent in by a medical professional or institution (, PA, FURNACE ROOM SUPERVISOR, urgent care, hospital, or assisted...) When possible be specific @ -No Did you speak to anyone other than the patient for history (EMS, parent, family, police, friend...)? What history was obtained from this source @ -No Did you review nursing and triage notes (agree or disagree)? Why? @ -I reviewed and agree with nursing and triage notes Were old charts reviewed (outside hosp., previous admission, EMS record, old EKG, old radiological studies, urgent care reports/EKG's, assisted records)? Report findings @ -No old charts were reviewed Differential Diagnosis (chest pain, altered mental status, abdominal pain women, abdominal pain men, vaginal bleeding, weakness, fever, dyspnea, syncope, headache, dizziness, GI bleed, back pain, seizure, CVA, palpatations, mental health, musculoskeletal)? @ -Differential includes dental abscess, peritonsillar abscess, Leonidas's angina, sialadenitis, this is not an all-inclusive list EKG interpreted by me (3pts min.). @ -As above X-rays interpreted by me (1pt min.). @ -None done CT interpreted by me (1pt min.). @ -CT shows nonspecific inflammation in the right neck appears to involve the submandibular gland and adjacent soft tissues including fat in the submandibular space, the pterygoid musculature, and likely slightly involving the masseter. There is also mild asymmetric haziness of the parapharyngeal fat on the right. Mildly enlarged adjacent lymph nodes, likely reactive. No enhancing mass or fluid collection is identified. U/S interpreted by me (1pt. min.). @ -None done What testing was considered but not performed or refused? (CT, X-rays, U/S, labs)? Why? @ -None What meds were considered but not given or refused? Why? @ -None Did you discuss the management of the patient with other professionals (professionals i.e. , PA, FURNACE ROOM SUPERVISOR, lab, RT, psych nurse, social media content specialist, survey researcher, teacher, deputy probation officer, pillowcase maker)? Give summary @ -Spoke with Dr. Stock who accepted admission Was smoking cessation discussed for >3mins.? @ -No Was critical care preformed (if so, how long)? @ -No Were there social determinants of health that impacted care today? How? (Homelessness, low income, unemployed, alcoholism, drug addiction, transportation, low edu. Level, literacy, decrease access to med. care, [facility], rehab)? @ -No Was there de-escalation of care discussed even if they declined (Discuss DNR or withdrawal of care, Hospice)? DNR status @ -No What co-morbidities impacted this encounter? (DM, HTN, Smoking, COPD, CAD, Cancer, CVA, ARF, Chemo, Hep., AIDS, mental health diagnosis, sleep apnea, morbid obesity)? @ -None Was patient admitted / discharged? Hospital course, mention meds given and route, prescriptions, significant lab abnormalities, going to OR and other pertinent info. @ -48-year-old female presenting with chief complaint of right-sided jaw pain and trismus. History and physical exam are conducted. Lab work shows no leukocytosis or anemia. CT shows extensive inflammation, appears consistent with sial adenitis. Patient is unable to take oral medication right now due to her trismus. She is treated with Decadron and Unasyn. She will be admitted for observation. ENT consult was placed. Patient is agreeable with this plan. I discussed this case with my attending Dr. Trachy Undiagnosed new problem with uncertain prognosis? @ -No Drug Therapy requiring intensive monitoring for toxicity (Heparin, Nitro, Insulin, Cardizem)? @ -No Were any procedures done? @ -No Diagnosis/symptom? @ -Sialoadenitis Acute, or Chronic, or Acute on Chronic? @ -Acute Uncomplicated (without systemic symptoms) or Complicated (systemic symptoms)? @ -Complicated Side effects of treatment? @ -No Exacerbation, Progression, or Severe Exacerbation? @ -No Poses a threat to life or bodily function? How? (Chest pain, USA, RI, pneumonia, PE, COPD, DKA, ARF, appy, cholecystitis, CVA, Diverticulitis, Homicidal, Suicidal, threat to staff... and all critical care pts) @ -Yes - Lab Data Result diagrams: 10/02/23 19:45 10/02/23 19:45 Lab Results 10/02/23 10/02/23 10/02/23 Range/Units 19:45 19:45 19:45 WBC 9.3 (3.8-10.6) k/uL RBC 4.17 (3.80-5.40) m/uL Hgb 13.6 (11.4-16.0) gm/dL Hct 38.1 (34.0-46.0) % MCV 91.3 (80.0-100.0) fL MCH 32.6 (25.0-35.0) pg MCHC 35.7 (31.0-37.0) g/dL RDW 13.2 (11.5-15.5) % Plt Count 250 (150-450) k/uL MPV 8.2 Neutrophils % 83 % Lymphocytes % 11 % Monocytes % 4 % Eosinophils % 1 % Basophils % 0 % Neutrophils # 7.7 (1.3-7.7) k/uL Lymphocytes # 1.0 (1.0-4.8) k/uL Monocytes # 0.4 (0-1.0) k/uL Eosinophils # 0.1 (0-0.7) k/uL Basophils # 0.0 (0-0.2) k/uL Sodium 141 (137-145) mmol/L Potassium 4.2 (3.5-5.1) mmol/L Chloride 109 H (98-107) mmol/L Carbon Dioxide 27 (22-30) mmol/L Anion Gap 5 mmol/L BUN 14 (7-17) mg/dL Creatinine 0.85 (0.52-1.04) mg/dL Est GFR (CKD-EPI)AfAm >90 (>60 ml/min/1.73 sqM) Est GFR (CKD-EPI)NonAf 82 (>60 ml/min/1.73 sqM) Glucose 85 (74-99) mg/dL Plasma Lactic Acid Russ 0.7 (0.7-2.0) mmol/L Calcium 8.5 (8.4-10.2) mg/dL Total Bilirubin 0.7 (0.2-1.3) mg/dL AST 20 (14-36) U/L ALT 18 (4-34) U/L Alkaline Phosphatase 102 (38-126) U/L Total Protein 6.7 (6.3-8.2) g/dL Albumin 3.7 (3.5-5.0) g/dL Disposition Clinical Impression: Sialadenitis Disposition: ADMITTED IP TO THIS HOSP Condition: Fair Time of Disposition: 00:49
[2023-10-02 20:13] LABS: ALT 18 U/L (4-34); AST 20 U/L (14-36); African American GFR (CKD) >90 (>60 ml/min/1.73 sqM); Albumin 3.7 g/dL (3.5-5.0); Alkaline Phosphatase 102 U/L (38-126); Anion Gap 5 mmol/L; Blood Urea Nitrogen 14 mg/dL (7-17); Calcium 8.5 mg/dL (8.4-10.2); Carbon Dioxide 27 mmol/L (22-30); Chloride 109 mmol/L (98-107); Glucose 85 mg/dL (74-99); Non-African American GFR(CKD) 82 (>60 ml/min/1.73 sqM); Potassium 4.2 mmol/L (3.5-5.1); Sodium 141 mmol/L (137-145); Total Bilirubin 0.7 mg/dL (0.2-1.3); Total Protein 6.7 g/dL (6.3-8.2)
[2023-10-02 20:22] LABS: Basophils % (A) 0 %; Eosinophils # (A) 0.1 k/uL (0-0.7); Eosinophils % (A) 1 %; HCT 38.1 % (34.0-46.0); HGB 13.6 gm/dL (11.4-16.0); Lymphocytes % (A) 11 %; MCH 32.6 pg (25.0-35.0); MCHC 35.7 g/dL (31.0-37.0); MCV 91.3 fL (80.0-100.0); Mean Platelet Volume 8.2; Monocytes # (A) 0.4 k/uL (0-1.0); Monocytes % (A) 4 %; Neutrophils # (A) 7.7 k/uL (1.3-7.7); Neutrophils % (A) 83 %; Platelet Count 250 k/uL (150-450); RBC 4.17 m/uL (3.80-5.40); RDW 13.2 % (11.5-15.5); WBC 9.3 k/uL (3.8-10.6)
--- NOTE | 2023-10-02 23:17 | CT ---
EXAMINATION TYPE: CT soft tissue neck w con CT DLP: 236.8 mGycm, Automated exposure control for dose reduction was used. DATE OF EXAM: 10/02/2023 8:19 PM COMPARISON: . CLINICAL INDICATION:Female, 48 years old with history of Trismus, right-sided jaw pain; PHH, Right si de jaw pain TECHNIQUE: Standard enhanced CT of the neck. Axial sections with coronal and sagittal reformats were obtained. Contrast used:100 cc mL of Isovue 300 with IV Contrast, Oral contrast used: none. FINDINGS: Brain: Visualized portions are grossly unremarkable. Orbits: Unremarkable Sinuses: Grossly unremarkable. Spaces of the neck: On the right there is haziness to the appearance of the submandibular gland and a djacent soft tissues including the pterygoid musculature, fatty tissue in the cervical medullary spa ce, the and likely slightly involving the masseter. There is also mild asymmetric haziness of the par apharyngeal fat on the right. No enhancing mass or fluid collection is identified. Musculoskeletal: No acute osseous pathology. Minimal degenerative changes of the C-spine. Lymph nodes: There are a few mildly enlarged lymph nodes in the right neck area of inflammation pricila cent to the SCM. Otherwise scattered nodes throughout the bilateral neck without evidence of bulky or necrotic adenopathy. Vascular structures: Visualized major arteries are patent without evidence of aneurysm. Thoracic Inlet/airway: Airway is patent. The lung apices are clear. Soft tissues/Thyroid: Thyroid and remainder of the soft tissues are unremarkable. Other: none. IMPRESSION Brain: Visualized portions are grossly unremarkable. Orbits: Unremarkable Sinuses: Grossly unremarkable. Spaces of the neck: On the right there is haziness to the appearance of the submandibular gland and a djacent soft tissues including fat in the submandibular space, the pterygoid musculature, and likely slightly involving the masseter. There is also mild asymmetric haziness of the parapharyngeal fat on the right. No enhancing mass or fluid collection is identified. Musculoskeletal: No acute osseous pathology. Minimal degenerative changes of the C-spine. Lymph nodes: There are a few mildly prominent lymph nodes in the right neck area of inflammation adj acent to the SCM. Otherwise scattered nodes throughout the bilateral neck without evidence of bulky o r necrotic adenopathy. Vascular structures: Visualized major arteries are patent without evidence of aneurysm. Thoracic Inlet/airway: Airway is patent. The lung apices are clear. Soft tissues/Thyroid: Thyroid and remainder of the soft tissues are unremarkable. Other: none. IMPRESSION 1. Nonspecific inflammation in the right neck appears to involve the submandibular gland and adjacen t soft tissues including fat in the submandibular space, the pterygoid musculature, and likely slight ly involving the masseter. There is also mild asymmetric haziness of the parapharyngeal fat on the ri ght. Mildly enlarged adjacent lymph nodes, likely reactive. 2. No enhancing mass or fluid collection is identified.
[2023-10-03] MEDS: DEXAMETHASONE SOD PHOSPHATE 10 MG/ML 1 ML VIAL IVP STA (00:01)
[2023-10-03] MEDS ORDERED: MORPHINE SULFATE 4 MG/ML SYRINGE IV PRN (00:44)
[2023-10-03] MEDS ORDERED: NALOXONE 0.4 MG/ML 1 ML VIAL IV PRN (00:44)
[2023-10-03] MEDS: SODIUM CHLORIDE 0.9% 1,000 ML IV SCH (02:06)
[2023-10-03] MEDS: AMPICILLIN-SULBACTAM 3 GM in SODIUM CHLORIDE 0.9% 100 ML IVPB ONE (02:07)
[2023-10-03] MEDS: AMPICILLIN-SULBACTAM 3 GM in SODIUM CHLORIDE 0.9% 100 ML IVPB STA (02:17)
[2023-10-03] MEDS ORDERED: ACETAMINOPHEN TAB 325 MG TAB PO PRN (02:27)
[2023-10-03] MEDS ORDERED: BENZOCAINE/MENTHOL LOZENG 1 EACH LOZENGE MUCOUS MEM PRN (02:28)
[2023-10-03] MEDS ORDERED: ONDANSETRON 4 MG/2 ML VIAL IVP PRN (02:28)
[2023-10-03] MEDS: CLINDAMYCIN 600 MG in DEXTROSE 5% IN WATER 50 ML IVPB SCH (06:18)
[2023-10-03] MEDS ORDERED: TEMAZEPAM 15 MG CAP PO PRN (10:30)
[2023-10-03] MEDS: DEXAMETHASONE SOD PHOSPHATE 10 MG/ML 1 ML VIAL IVP SCH (11:31)
--- NOTE | 2023-10-03 14:28 | P.HPIM ---
History of Present Illness H&P Date: 10/03/23 Chief Complaint: Right jaw pain * 48-year-old patient with past medical history significant for uterine fibroid, history of endometriosis, presented to the emergency department with complaints of right-sided jaw discomfort. Patient states she has not followed up with her dentist outpatient and had received a filling to the left side about 3 days prior to arrival. Patient started noticing worsening swelling to the point she was unable to eat or drink more on the right side. * Workup initiated in ER included a CT soft tissue neck which showed nonspecific inflammation on the right side of the neck involving the submandibular gland and adjacent soft tissue in the submandibular space asymmetric haziness was noted as well likely reactive * Blood work reviewed at the time of admission showed WBC 9.3 hemoglobin 13.6 platelet count of 250. Serum chemistry showed sodium 141 potassium 4.2 BUN 14 creatinine 0.85 liver profile within normal limit * Patient was started on IV antibiotics and will be admitted with consultation for evaluation by ENT and infectious disease REVIEW OF SYSTEMS: Right neck swelling, throat discomfort, difficulty in swallowing CONSTITUTIONAL: No fever, no malaise, no fatigue. HEENT: No recent visual problems or hearing problems. Denied any sore throat. CARDIOVASCULAR: No chest pain, orthopnea, PND, no palpitations, no syncope. PULMONARY: No shortness of breath, no cough, no hemoptysis. GASTROINTESTINAL: No diarrhea, no nausea, no vomiting, no abdominal pain. NEUROLOGICAL: No headaches, no weakness, no numbness. HEMATOLOGICAL: Denies any bleeding or petechiae. GENITOURINARY: Denies any burning micturition, frequency, or urgency. MUSCULOSKELETAL/RHEUMATOLOGICAL: Denies any joint pain, swelling, or any muscle pain. ENDOCRINE: Denies any polyuria or polydipsia. PHYSICAL EXAMINATION: GENERAL: The patient is alert and oriented x3, ill appearance HEENT: Pupils are round and equally reacting to light. EOMI. right neck swelling CARDIOVASCULAR: S1 and S2 present. No murmurs, rubs, or gallops. PULMONARY: Chest is clear to auscultation, no wheezing or crackles. ABDOMEN: Soft, nontender, nondistended, normoactive bowel sounds. No palpable organomegaly. MUSCULOSKELETAL: No joint swelling or deformity. EXTREMITIES: No cyanosis, clubbing, or pedal edema. NEUROLOGICAL: Gross neurological examination did not reveal any focal deficits. Assessment and plan * Acute sialoadenitis * History of dysfunctional uterine bleeding and uterine fibroid * In regards to acute sialadenitis, CT soft tissue neck reviewed, consultation obtained from ENT * Continue patient on IV antibiotic on clindamycin and started on dexamethasone * Antibiotic allergies noted hence infectious disease consulted for discharge antibiotic recommendations * Continue patient on clear liquid diet * On subcu heparin for DVT prophylax Past Medical History Additional Past Medical History / Comment(s): hx heart murmur, endometriosis, uterine fibroid History of Any Multi-Drug Resistant Organisms: None Reported Additional Past Surgical History / Comment(s): removal extra ureter as , laproscopy x 2, rt salpingectomy, skin lesion removed Past Anesthesia/Blood Transfusion Reactions: No Reported Reaction Past Psychological History: No Psychological Hx Reported Smoking Status: Never smoker Past Alcohol Use History: None Reported Past Drug Use History: None Reported - Past Family History Father Family Medical History: Cancer Medications and Allergies Home Medications Medication Instructions Recorded Confirmed Type Omeprazole 20 mg PO DAILY 01/13/21 10/03/23 History L.acidoph,Paracasei, B.lactis 1 cap PO DAILY 03/14/21 10/03/23 History [Probiotic] Amoxic-Pot Clav 500-125 mg 1 tab PO BID 10/03/23 10/03/23 History [Augmentin 500-125 mg] Cetirizine HCl [Zyrtec] 10 mg PO DAILY 10/03/23 10/03/23 History Fluticasone Nasal [place] [Flonase 1 spray EA NOSTRIL DAILY PRN 10/03/23 10/03/23 History Nasal [place]] Allergies Allergy/AdvReac Type Severity Reaction Status Date / Time latex Allergy Rash/Hives Verified 10/03/23 08:39 Sulfa (Sulfonamide Allergy Swelling Verified 10/03/23 08:39 Antibiotics) Physical Exam Vitals: Vital Signs Temp Pulse Pulse Resp BP BP Pulse Ox 10/03/23 08:50 98.1 F 70 16 129/75 98 10/03/23 07:59 68 18 121/77 98 10/03/23 06:16 98.4 F 62 18 116/64 96 10/03/23 01:32 98.9 F 72 18 131/53 98 10/02/23 23:30 98.1 F 75 18 112/64 99 10/02/23 17:47 98.7 F 84 18 160/76 99 Intake and Output 10/02/23 10/03/23 10/03/23 22:59 06:59 14:59 Other: Weight 70.76 kg 70.76 kg Results CBC & Chem 7: 10/02/23 19:45 10/02/23 19:45 Labs: Abnormal Lab Results - Last 24 Hours (Table) 10/02/23 Range/Units 19:45 Chloride 109 H (98-107) mmol/L
[2023-10-03] MEDS: AMPICILLIN-SULBACTAM 3 GM in SODIUM CHLORIDE 0.9% 100 ML IVPB SCH (14:54)
[2023-10-03] MEDS: HEPARIN SODIUM,PORCINE 5,000 UNIT/ML 1 ML VIAL SQ SCH (21:07)
--- NOTE | 2023-10-04 07:44 | P.CONS ---
History of Present Illness - Reason for Consult Consult date: 10/03/23 - History of Present Illness Patient is a 48-year-old female with a past medical his significant for endometriosis uterine fibroid recently have a left lower molar tooth filling subsequently patient will be having right-sided jaw discomfort also noticed to having a increasing saliva production and bad taste in the mouth patient was noted to have increasing swelling to the right side of the neck along with the pain describing it to be dull aching to sharp moderate intensity without any radiation patient did have difficulty swallowing but denies any difficulty breathing nausea and episode of vomiting of the patient present to the hospital but no abdominal pain or diarrhea on arrival to the ER patient was afebrile and no fever have been recorded subsequently patient was not tachycardic hypotensive or hypoxic and no need for supplemental oxygen white count was 9.3 electrolytes were normal liver enzymes normal kidney function was normal patient did have a CT of the soft tissue of the neck which mention nonspecific inflammation in the right neck appears to involve the submandibular gland and adjacent soft tissue including fat in the submandibular space along with mildly enlarged adjacent lymph node patient did have a history of penicillin allergy she did receive a dose of Unasyn 2 AM without any problem subsequently by Versed ordered clindamycin infectious was consulted for further management of antibiotic therapy Past Medical History Additional Past Medical History / Comment(s): hx heart murmur, endometriosis, uterine fibroid History of Any Multi-Drug Resistant Organisms: None Reported Additional Past Surgical History / Comment(s): removal extra ureter as , laproscopy x 2, rt salpingectomy, skin lesion removed Past Anesthesia/Blood Transfusion Reactions: No Reported Reaction Past Psychological History: No Psychological Hx Reported Smoking Status: Never smoker Past Alcohol Use History: None Reported Past Drug Use History: None Reported - Past Family History Father Family Medical History: Cancer Medications and Allergies Home Medications Medication Instructions Recorded Confirmed Type Omeprazole 20 mg PO DAILY 01/13/21 10/03/23 History L.acidoph,Paracasei, B.lactis 1 cap PO DAILY 03/14/21 10/03/23 History [Probiotic] Amoxic-Pot Clav 500-125 mg 1 tab PO BID 10/03/23 10/03/23 History [Augmentin 500-125 mg] Cetirizine HCl [Zyrtec] 10 mg PO DAILY 10/03/23 10/03/23 History Fluticasone Nasal [place] [Flonase 1 spray EA NOSTRIL DAILY PRN 10/03/23 10/03/23 History Nasal [place]] Allergies Allergy/AdvReac Type Severity Reaction Status Date / Time latex Allergy Rash/Hives Verified 10/03/23 08:39 Sulfa (Sulfonamide Allergy Swelling Verified 10/03/23 08:39 Antibiotics) Physical Exam Vitals: Vital Signs Temp Pulse Pulse Resp BP BP Pulse Ox 10/03/23 08:50 98.1 F 70 16 129/75 98 10/03/23 07:59 68 18 121/77 98 10/03/23 06:16 98.4 F 62 18 116/64 96 10/03/23 01:32 98.9 F 72 18 131/53 98 10/02/23 23:30 98.1 F 75 18 112/64 99 10/02/23 17:47 98.7 F 84 18 160/76 99 Intake and Output 10/02/23 10/03/23 10/03/23 22:59 06:59 14:59 Other: Weight 70.76 kg 70.76 kg Results CBC & Chem 7: 10/02/23 19:45 10/02/23 19:45 Labs: Abnormal Lab Results - Last 24 Hours (Table) 10/02/23 Range/Units 19:45 Chloride 109 H (98-107) mmol/L Assessment and Plan Plan: 1patient presented hospital right-sided neck pain difficulty swallowing and this patient who did have a significant swelling and inflammation around the right submandibular gland we will need to cover for the polymicrobial oral chuck to be the likely pathogen 2-patient reporting allergy to penicillin has her mother told her she is unclear about the reaction however she mention she has taken amoxicillin without any problem clinically doubt true penicillin allergy and will be taken of her chart 3discontinue clindamycin. 4we will start the patient on Unasyn 3 g every 6 hours and monitor clinical course closely We will follow on clinical condition and cultures to further adjust medication if needed Thank you for this consultation we will follow the patient along with you Dictation was produced using [employer] software. please excuse any grammatical, word or spelling errors. Time with Patient: Greater than 30
[2023-10-04] MEDS: KETOROLAC 15 MG/ML 1 ML VIAL IVP PRN (08:12)
[2023-10-04 10:36] LABS: Basophils # (A) 0.02 X 10*3/uL (0.00-0.10); Basophils % (A) 0.2 %; Eosinophils # (A) 0 X 10*3/uL (0.04-0.35); Eosinophils % (A) 0 %; HCT 40.5 % (37.2-46.3); HGB 13.4 g/dL (12.0-15.0); MCH 30.5 pg (27.0-32.0); MCHC 33.1 g/dL (32.0-37.0); MCV 92.3 FL (80.0-97.0); Mean Platelet Volume 11.1 FL (9.5-12.2); Monocytes # (A) 0.36 X 10*3/uL (0.20-1.00); Monocytes % (A) 3.6 %; NRBC Per 100 WBC 0 X 10*3/uL (0.00-0.01); Neutrophils # (A) 8.77 X 10*3/uL (1.80-7.70); Neutrophils % (A) 87.8 %; Platelet Count 338 X 10*3/uL (140-440); RBC 4.39 X 10*6/uL (4.10-5.20); RDW 12.7 % (11.5-14.5); WBC 9.99 X 10*3/uL (4.50-10.00)
[2023-10-04 10:37] LABS: BUN/Creat Ratio 17.83 Ratio (12.00-20.00); Blood Urea Nitrogen 10.7 mg/dL (9.0-27.0); Calcium 8.8 mg/dL (8.7-10.3); Carbon Dioxide 21.8 mmol/L (21.6-31.8); Chloride 107 mmol/L (96-109); Glucose 117 mg/dL (70-110); Potassium 4.3 mmol/L (3.5-5.5); Sodium 145 mmol/L (135-145)
--- NOTE | 2023-10-04 12:42 | P.PN ---
Subjective Progress Note Date: 10/04/23 * 48-year-old patient with past medical history significant for uterine fibroid, history of endometriosis, presented to the emergency department with complaints of right-sided jaw discomfort. Patient states she has not followed up with her dentist outpatient and had received a filling to the left side abo ut 3 days prior to arrival. Patient started noticing worsening swelling to the point she was unable to eat or drink more on the right side. * Workup initiated in ER included a CT soft tissue neck which showed nonspecific inflammation on the right side of the neck involving the submandibular gland and adjacent soft tissue in the submandibular space asymmetric haziness was noted as well likely reactive * Blood work reviewed at the time of admission showed WBC 9.3 hemoglobin 13.6 platelet count of 250. Serum chemistry showed sodium 141 potassium 4.2 BUN 14 creatinine 0.85 liver profile within normal limit * Patient was started on IV antibiotics and will be admitted with consultation for evaluation by ENT and infectious disease * 10/04/23 : Patient seen and evaluated bedside appreciate input from infectious disease transition to IV Unasyn, patient received dexamethasone as well, diet advanced to regular diet continue with fluid resuscitation. PHYSICAL EXAMINATION: GENERAL: The patient is alert and oriented x3, ill appearance HEENT: Pupils are round and equally reacting to light. EOMI. right neck swelling CARDIOVASCULAR: S1 and S2 present. No murmurs, rubs, or gallops. PULMONARY: Chest is clear to auscultation, no wheezing or crackles. ABDOMEN: Soft, nontender, nondistended, normoactive bowel sounds. No palpable organomegaly. MUSCULOSKELETAL: No joint swelling or deformity. EXTREMITIES: No cyanosis, clubbing, or pedal edema. NEUROLOGICAL: Gross neurological examination did not reveal any focal deficits. Assessment and plan * Acute sialoadenitis * History of dysfunctional uterine bleeding and uterine fibroid * In regards to acute sialadenitis, CT soft tissue neck reviewed, consultation obtained from ENT * Continue patient on IV antibiotic , on IV Unasyn , completed course of dexamethasone * Antibiotic allergies noted hence infectious disease consulted for discharge antibiotic recommendations * Diet advanced to regular diet Objective - Vital Signs Vital signs: Vital Signs Temp 97.7 F 10/04/23 07:00 Pulse 60 10/04/23 07:00 Resp 16 10/04/23 07:00 BP 149/74 10/04/23 07:00 Pulse Ox 100 10/04/23 07:00 FiO2 Intake & Output 10/03/23 10/04/23 10/04/23 18:59 06:59 18:59 Intake Total 480 Balance 480 Weight 70.76 kg Intake: Oral 480 Other: # Voids 2 2 - Labs CBC & Chem 7: 10/04/23 06:39 10/04/23 06:39
--- NOTE | 2023-10-04 12:46 | P.PN ---
Subjective Progress Note Date: 10/04/23 Principal diagnosis: Reason for follow-up is Silandeitis/abnormal CT of the neck Patient is a 48-year-old female with a past medical his significant for endometriosis uterine fibroid recently have a left lower molar tooth filling subsequently patient will be having right-sided jaw, patient did have a CT of the soft tissue of the neck concerning for nonspecific inflammation in the right submandibular gland area but no abscess. On today's evaluation that is 10/04/2023,the patient denies any fever or any chills, patient is breathing comfortably on room air, the patient denies chest pain shortness of breath and no significant cough, patient still complaining of some swelling to the right side of the neck but denies any difficulty swallowing no vomiting or diarrhea. Patient white count is 9.99, creatinine 0.6 Objective - Vital Signs Vital signs: Vital Signs Temp 97.7 F 10/04/23 07:00 Pulse 60 10/04/23 07:00 Resp 16 10/04/23 07:00 BP 149/74 10/04/23 07:00 Pulse Ox 100 10/04/23 07:00 FiO2 Intake & Output 10/03/23 10/04/23 10/04/23 18:59 06:59 18:59 Intake Total 480 Balance 480 Weight 70.76 kg Intake: Oral 480 Other: # Voids 2 2 - Exam GENERAL DESCRIPTION: Middle-aged female lying in bed in no distress HEENT: Minimal swelling but no tenderness RESPIRATORY SYSTEM: Unlabored breathing , decreased breath sounds at bases HEART: S1 S2 regular rate and rhythm , ABDOMEN: Soft , no tenderness EXTREMITIES: No edema feet - Labs CBC & Chem 7: 10/04/23 06:39 10/04/23 06:39 Labs: Abnormal Lab Results - Last 24 Hours (Table) 10/04/23 10/04/23 Range/Units 06:39 06:39 Neutrophils # 8.77 H (1.80-7.70) X 10*3/uL Lymphocytes # 0.80 L (0.90-5.00) X 10*3/uL Eosinophils # 0 L (0.04-0.35) X 10*3/uL Anion Gap 16.20 H (4.00-12.00) mmol/L Glucose 117 H (70-110) mg/dL Assessment and Plan (1) Sialadenitis Current Visit: Yes Status: Acute Code(s): K11.20 - SIALOADENITIS, UNS PECIFIED SNOMED Code(s): 66762754 Plan: 1patient presented hospital right-sided neck pain difficulty swallowing and this patient who did have a significant swelling and inflammation around the right submandibular gland we will need to cover for the polymicrobial oral chuck to be the likely pathogen 2-patient reporting allergy to penicillin has her mother told her she is unclear about the reaction however she mention she has taken amoxicillin without any problem clinically doubt true penicillin allergy and will be taken of her chart 3patient has tolerated Unasyn to continue for another 24 to 48 hours before transition to oral antibiotics Dictation was produced using [employer] dictation software. please excuse any grammatical, word or spelling errors. Time with Patient: Less than 30
[2023-10-04] MEDS: FLUCONAZOLE 100 MG TAB PO ONE (18:06)
--- NOTE | 2023-10-04 23:26 | CONS ---
CONSULTATION REASON FOR CONSULTATION: Right parotitis/sialadenitis. HISTORY OF PRESENT ILLNESS: This patient is a very pleasant 48-year-old female, who was admitted to [facility] via the emergency room on 10/03/2023. The patient presented with a history of severe right facial pain, difficulty opening her mouth, and right ear pain. She stated that she had dental work performed on the prior to her admission. The dental work consisted of repair of a filling a left lower molar. The next morning after her dental procedure, she noted that there were swelling and pain in her right cheek area. The patient has history of TMJ and wears a bite splint because she grinds her teeth. She initially thought that this was the source of her pain. However, as time went on, the pain and swelling on the right side of her face progressed to the point that she presented at [facility] Emergency Room. A CT scan was done of the neck with contrast and it revealed evidence of extensive cellulitis involving the right parotid gland and surrounding soft tissues. The patient was experiencing significant trismus at that time. She had a normal white cell count. She is a nonsmoker and denied any previous similar history. The patient was given Unasyn IV and also dexamethasone IV while in the emergency room. By the time she was finally admitted and reached her room in the hospital, the patient had already started feeling somewhat better and the trismus has started to decrease. I was called regarding this patient because I was the ENT physician/surgeon on-call. I advised the nursing staff to give the patient additional doses of dexamethasone 5 mg IV q.8 hours x2 doses, then stop. I also advised that they could advance her diet as tolerated. On her initial admission, she was only able to eat clear liquids. I saw this patient in her room on 10/04/2023. At that time, she was eating, talking, and feeling much better. She stated that she still had a small amount of difficulty opening her mouth really wide, but otherwise was able to eat a normal meal. In speaking with the patient, it was discovered that she had a history of using Q-tips excessively. She stated that her ears have become quite itchy. 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 I advised the patient that I would give her a prescription for a medication that would quiet down the itching, but that she should never use Q-tips to clean her ears in the future. PAST MEDICAL HISTORY: Reveals the patient has allergies to latex, sulfa, and penicillin. CURRENT MEDICATIONS: At home include: 1. Claritin. 2. Prilosec. SOCIAL HISTORY: She is a nonsmoker. There is no history of asthma, diabetes mellitus, or hypertension. REVIEW OF SYSTEMS: Essentially noncontributory. PHYSICAL EXAMINATION: GENERAL: This patient is a very pleasant 48-year-old female, who is alert, cooperative and is in no acute distress at this time. The patient was seen by me on 10/04/2023. HEENT: The patient is normocephalic. Canals are dry, scaly and erythematous and devoid of any wax. Tympanic membranes, middle ear spaces are free of any fluid or infection. Pupils equal, round, and reactive to light and accommodation. Extraocular movements are within normal limits. Intranasal examination reveals moderate septal deviation with compensatory hypertrophy of inferior turbinates and a slight amount of clear mucus on the mucous membranes and draining from both maxillary sinus ostia and down the posterior pharynx. Examination of the oropharynx, including bi-manual palpation of the right parotid gland reveals that I am able to express a small amount of purulent material from Stensen's duct, which is the drainage duct for the parotid gland on that side. Palpation of neck reveals slight right anterior cervical lymphadenopathy, which is nontender. Cranial nerves 2 through 12, remainder of the head and neck exam is unremarkable. CHEST/CARDIOVASCULAR: Both lung [place] are clear. The patient is in regular sinus rhythm. S1 and S2 are present without evidence of any murmurs, S3s or S4s. Peripheral pulses are bilaterally symmetrical. ABDOMEN: There is no evidence of any masses, megaly, or tenderness. The abdomen is soft. The remainder of the physical exam is unremarkable. IMPRESSION: Right parotitis/sialadenitis, etiology most likely due to mild dehydration. PLAN: I advised the patient that most likely this is the initiating factor of her parotid gland infection with some degree of dehydration. The patient admits that she drinks very little water on a daily basis. I advised the patient that she needs to try and drink a minimum of 2 L of plain water (this does not include juice, pop, coffee, milk, etc) on a daily basis. I do not feel that the infection in the right parotid gland was related to the dental procedure that she had performed. In addition, I have cautioned her against ever using Q-tips to clean her ears and I demonstrated to her the proper way to clean her ears during her shower/bath and also how to dry her ears safely. I will be leaving a prescription for a medication called DermOtic 20 mL. The patient is to place 5 drops of the medication in the affected ear b.i.d. on a p.r.n. basis for itching. She has 8 refills on this medication. Because the medication even in the generic form is quite expensive, I gave her a [employer] card to use in case her insurance does not cover the medication. I advised the patient that from an ENT standpoint, she can be discharged home at any time. I advised her that she will most likely be discharged on an oral antibiotic for 7 to 10 days after leaving the hospital and she should make sure and complete the entire prescription. I do not need to see this patient on followup and I will sign off on this patient at this time. I want to take this opportunity to thank you for allowing me to assist in the care of your patient. If I could be of any further assistance, please feel free to call my office. I saw this patient on 10/04/2023 in the hospital. Again, from an ENT standpoint, the patient can be discharged home at any time. CARLOS / ALIVIA: [id number] / DIEGO
[2023-10-05 07:59] VITALS: RESP 16
[2023-10-05] MEDS: HYDROcodone/APAP 5-325MG 1 EACH TAB PO PRN (09:30)
[2023-10-05 11:24] LABS: HGB 12.5 g/dL (12.0-15.0); MCHC 32.9 g/dL (32.0-37.0); MCV 94.3 FL (80.0-97.0); Mean Platelet Volume 10.6 FL (9.5-12.2); NRBC Per 100 WBC 0 X 10*3/uL (0.00-0.01); Platelet Count 282 X 10*3/uL (140-440); RBC 4.03 X 10*6/uL (4.10-5.20); RDW 12.8 % (11.5-14.5); WBC 4.93 X 10*3/uL (4.50-10.00)
[2023-10-05 11:26] LABS: BUN/Creat Ratio 24.75 Ratio (12.00-20.00); Blood Urea Nitrogen 19.8 mg/dL (9.0-27.0); Calcium 8.4 mg/dL (8.7-10.3); Carbon Dioxide 23.3 mmol/L (21.6-31.8); Chloride 109 mmol/L (96-109); Glucose 83 mg/dL (70-110); Potassium 4.4 mmol/L (3.5-5.5); Sodium 143 mmol/L (135-145)
--- NOTE | 2023-10-05 13:08 | P.PN ---
Subjective Progress Note Date: 10/05/23 * 48-year-old patient with past medical history significant for uterine fibroid, history of endometriosis, presented to the emergency department with complaints of right-sided jaw discomfort. Patient states she has not followed up with her dentist outpatient and had received a filling to the left side abo ut 3 days prior to arrival. Patient started noticing worsening swelling to the point she was unable to eat or drink more on the right side. * Workup initiated in ER included a CT soft tissue neck which showed nonspecific inflammation on the right side of the neck involving the submandibular gland and adjacent soft tissue in the submandibular space asymmetric haziness was noted as well likely reactive * Blood work reviewed at the time of admission showed WBC 9.3 hemoglobin 13.6 platelet count of 250. Serum chemistry showed sodium 141 potassium 4.2 BUN 14 creatinine 0.85 liver profile within normal limit * Patient was started on IV antibiotics and will be admitted with consultation for evaluation by ENT and infectious disease * 10/04/23 : Patient seen and evaluated bedside appreciate input from infectious disease transition to IV Unasyn, patient received dexamethasone as well, diet advanced to regular diet continue with fluid resuscitation. * 10/05/23: Patient seen and evaluated bedside, on evaluation patient does complain of right-sided neck discomfort, patient started on Medrol Dosepak co ntinue IV antibiotics continue to monitor for another 24 hours, potential discharge by 10/07/2023, patient explained that the swelling and discomfort does not improve she would stay in the hospital PHYSICAL EXAMINATION: GENERAL: The patient is alert and oriented x3, ill appearance HEENT: Pupils are round and equally reacting to light. EOMI. right neck swelling CARDIOVASCULAR: S1 and S2 present. No murmurs, rubs, or gallops. PULMONARY: Chest is clear to auscultation, no wheezing or crackles. ABDOMEN: Soft, nontender, nondistended, normoactive bowel sounds. No palpable organomegaly. MUSCULOSKELETAL: No joint swelling or deformity. EXTREMITIES: No cyanosis, clubbing, or pedal edema. NEUROLOGICAL: Gross neurological examination did not reveal any focal deficits. Assessment and plan * Acute sialoadenitis * History of dysfunctional uterine bleeding and uterine fibroid * In regards to acute sialadenitis, CT soft tissue neck reviewed, consultation obtained from ENT, appreciate recommendation * Continue patient on IV antibiotic , on IV Unasyn day 2 , completed course of dexamethasone, worse right neck swelling started on Medrol Dosepak * Appreciate input from infectious disease * Diet advanced to regular diet Objective - Vital Signs Vital signs: Vital Signs Temp 97.8 F 10/05/23 07:00 Pulse 58 L 10/05/23 07:00 Resp 16 10/05/23 07:00 BP 135/81 10/05/23 07:00 Pulse Ox 99 10/05/23 07:00 FiO2 Intake & Output 10/04/23 10/05/23 10/05/23 18:59 06:59 18:59 Intake Total 720 118 Balance 720 118 Intake: Oral 720 118 Other: # Voids 3 2 - Labs CBC & Chem 7: 10/05/23 07:08 10/05/23 07:08 Labs: Abnormal Lab Results - Last 24 Hours (Table) 10/05/23 10/05/23 Range/Units 07:08 07:08 RBC 4.03 L (4.10-5.20) X 10*6/uL BUN/Creatinine Ratio 24.75 H (12.00-20.00) Ratio Calcium 8.4 L (8.7-10.3) mg/dL C-Reactive Protein 3.70 H (0.00-0.80) mg/dL Microbiology - Last 24 Hours (Table) 10/03/23 01:35 Blood Culture - Preliminary Blood 10/03/23 02:00 Blood Culture - Preliminary Blood
[2023-10-05] MEDS: methylPREDNISolone 4 MG TAB TAPER PO SCH (14:23)
[2023-10-06 12:22] LABS: Blood Urea Nitrogen 15.3 mg/dL (9.0-27.0); Calcium 8.6 mg/dL (8.7-10.3); Carbon Dioxide 24.8 mmol/L (21.6-31.8); Chloride 106 mmol/L (96-109); Glucose 77 mg/dL (70-110); Potassium 4.4 mmol/L (3.5-5.5); Sodium 140 mmol/L (135-145)
--- NOTE | 2023-10-06 21:40 | P.PN ---
Subjective 48-year-old patient with past medical history significant for uterine fibroid, history of endometriosis, presented to the emergency department with complaints of right-sided jaw discomfort. Patient states she has not followed up with her dentist outpatient and had received a filling to the left side about 3 days prior to arrival. Patient started noticing worsening swelling to the point she was unable to eat or drink more on the right side. Workup initiated in ER included a CT soft tissue neck which showed nonspecific inflammation on the right side of the neck involving the submandibular gland and adjacent soft tissue in the submandibular space asymmetric haziness was noted as well likely reactive Blood work reviewed at the time of admission showed WBC 9.3 hemoglobin 13.6 platelet count of 250. Serum chemistry showed sodium 141 potassium 4.2 BUN 14 creatinine 0.85 liver profile within normal limit Patient was started on IV antibiotics and will be admitted with consultation for evaluation by ENT and infectious disease 10/04/23 : Patient seen and evaluated bedside appreciate input from infectious disease transition to IV Unasyn, patient received dexamethasone as well, diet advanced to regular diet continue with fluid resuscitation. 10/05/23: Patient seen and evaluated bedside, on evaluation patient does complain of right-sided neck discomfort, patient started on Medrol Dosepak continue IV antibiotics continue to monitor for another 24 hours, potential discharge by 10/07/2023, patient explained that the swelling and discomfort does not improve she would stay in the hospital 10/06/2023 Patient clinically improving, Her Right submandibular pain is improving, patient able to tolerate diet well She has no fever or leukocytosis ENT specialist evaluated her and cleared her for discharge No need to follow-up with ENT service upon discharge per Recommendation Patient remains on IV Unasyn Case was discussed with ID team, will keep her With IV antibiotic today Possible discharge in 24 to 48 hours Objective - Vital Signs Vital signs: Vital Signs Temp 97.8 F 10/06/23 18:44 Pulse 61 10/06/23 18:44 Resp 16 10/06/23 18:44 BP 135/75 10/06/23 18:44 Pulse Ox 100 10/06/23 18:44 FiO2 Intake & Output 10/06/23 10/06/23 10/07/23 06:59 18:59 06:59 Intake Total 936 Balance 936 Intake: Intake, IV Titration 700 Amount Ampicillin-Sulbactam 3 gm 100 In Sodium Chloride 0.9% 100 ml @ 200 mls/hr IVPB Q6H [facility] Rx#:[id number] Sodium Chloride 0.9% 1, 600 000 ml @ 75 mls/hr IV . [id number] [facility] Rx#:[id number] Oral 236 Other: # Voids 2 - Exam GENERAL: The patient is alert and oriented x3, not in any acute distress. Well developed, well nourished. -HEENT: Pupils are round and equally reacting to light. EOMI. No scleral icterus. No conjunctival pallor. Normocephalic, atraumatic. No pharyngeal erythe ma. No thyromegaly. Mild tenderness in the submandibular area on the right side CARDIOVASCULAR: S1 and S2 present. No murmurs, rubs, or gallops. PULMONARY: Chest is clear to auscultation, no wheezing , no crackles. ABDOMEN: Soft, nontender, nondistended, normoactive bowel sounds. No palpable organomegaly. MUSCULOSKELETAL: No joint swelling or deformity. EXTREMITIES: No cyanosis, clubbing, or pedal edema. NEUROLOGICAL: Gross neurological examination did not reveal any focal deficits. SKIN: No rashes. no petechiae. - Labs CBC & Chem 7: 10/05/23 07:08 10/06/23 07:25 Labs: Abnormal Lab Results - Last 24 Hours (Table) 10/06/23 Range/Units 07:25 BUN/Creatinine Ratio 25.50 H (12.00-20.00) Ratio Calcium 8.6 L (8.7-10.3) mg/dL Microbiology - Last 24 Hours (Table) 10/03/23 01:35 Blood Culture - Preliminary Blood 10/03/23 02:00 Blood Culture - Preliminary Blood Assessment and Plan Assessment: Acute sialoadenitis and acute parotitis History of dysfunctional uterine bleeding and uterine fibroid Plan: Continue with IV Unasyn ENT service evaluated the patient and cleared her for discharge ID team on the case GI DVT prophylaxis Pain management Encourage diet Possible discharge in 24 to 48 hours
[2023-10-07 08:38] VITALS: BP 144/82; PULSE 50; TEMP 97.9
--- NOTE | 2023-10-08 06:13 | P.DS ---
Providers Date of admission: 10/03/23 01:14 Attending physician: Sydney Ennis Consults: 10/03/23 00:44 Consult Physician Urgent Consulting Provider: Alexandro Dia Consult Reason/Comments: sialadenitis Do you want consulting provider notified?: Yes, Notify in am 10/03/23 02:29 Consult Physician Routine Consulting Provider: Maxine Cerrato Consult Reason/Comments: penicillin allergy, sialadenitis Do you want consulting provider notified?: Yes Primary care physician: Rory Rae [facility] Course: Diagnoses: Acute sialoadenitis and acute parotitis History of dysfunctional uterine bleeding and uterine fibroid Hospital course: 48-year-old patient with past medical history significant for uterine fibroid, history of endometriosis, presented to the emergency department with complaints of right-sided jaw discomfort. Patient was found to have acute right cellulitis and possible right parotitis.CT soft tissue neck which showed nonspecific inflammation on the right side of the neck involving the submandibular gland and adjacent soft tissue in the submandibular space asymmetric haziness was noted as well likely reactive. Patient evaluated by ID team and ENT team. Patient was treated with IV antibiotic Unasyn patient showed interval improvement. She is able to eat. Pain subsided and controlled. No other new complaints no fever or leukocytosis. Is thought secondary to dehydration. Patient instructed to increase hydration upon discharge and follow-up closely as an outpatient and she agrees Patient agrees to go home today. Patient was cleared for discharge by ID and ENT service Patient will be discharged on Augmentin x 10 days Problems and management plan were discussed with the patient and he verbalized understanding and acceptance Patient was found stable and can be discharged home in guarded prognosis however he needs follow-up as an outpatient. Patient was instructed to follow up with PCP within one week and patient agrees Physical exam -Gen: patient is a AAOx3, no distress. Very mild right submandibular tenderness with no significant swelling CVS: S1-S2, RRR, no murmur Lungs: B/L CTA, no wheezing Abdomen: soft, no distention, no tenderness, positive bowel sounds Extremity: no leg edema or induration Time spent more than 35 minutes Patient Condition at Discharge: Fair Plan - Discharge Summary Discharge Rx Participant: No New Discharge Prescriptions: New Acetaminophen Tab [Tylenol] 650 mg PO Q6HR PRN tab PRN Reason: Mild Pain Or Fever > 100.5 Amoxic-Pot Clav 875-125Mg [Augmentin 875-125] 1 tab PO Q12HR 10 Days #20 tab fluocinolone acetonide oiL [Dermotic] 20 ml OT BID PRN #100 ml PRN Reason: Itching Continue Omeprazole 20 mg PO DAILY Fluticasone Nasal [place] [Flonase Nasal [place]] 1 spray EA NOSTRIL DAILY PRN PRN Reason: Allergy Symptoms Cetirizine HCl [Zyrtec] 10 mg PO DAILY L.acidoph,Paracasei, B.lactis [Probiotic] 1 cap PO DAILY Discontinued Amoxic-Pot Clav 500-125 mg [Augmentin 500-125 mg] 1 tab PO BID Discharge Medication List Omeprazole 20 mg PO DAILY 01/13/21 [History] L.acidoph,Paracasei, B.lactis [Probiotic] 1 cap PO DAILY 03/14/21 [History] Cetirizine HCl [Zyrtec] 10 mg PO DAILY 10/03/23 [History] Fluticasone Nasal [place] [Flonase Nasal [place]] 1 spray EA NOSTRIL DAILY PRN 10/03/23 [History] Acetaminophen Tab [Tylenol] 650 mg PO Q6HR PRN tab 10/06/23 [Rx] fluocinolone acetonide oiL [Dermotic] 20 ml OT BID PRN #100 ml 10/06/23 [Rx] Amoxic-Pot Clav 875-125Mg [Augmentin 875-125] 1 tab PO Q12HR 10 Days #20 tab 10/07/23 [Rx] Follow up Appointment(s)/Referral(s): Rory Rae DO [Primary Care Provider] - 1-2 days Alexandro Dia MD [STAFF PHYSICIAN] - As Needed Maxine Cerrato MD [STAFF PHYSICIAN] - As Needed Patient Instructions/Handouts: Sialoadenitis (GEN) Activity/Diet/Wound Care/Special Instructions: heart healthy diet, encourage oral hydration activity is restricted till you see your doctor Discharge/Stand Alone Forms: Work/School Release, Work/Release Restrictions Form, Work/School Release / Restrict Discharge Disposition: HOME SELF-CARE
== END 2023-10-07 14:42 | disposition home or self-care (01) | DRG 155 ==
LOC: EC 17:25 → 6NMEDSUR 10-03 01:14 → OBSVTOIN 10-07 07:00
PROVIDERS: ADMIT Hospitalist; ATTEND Hospitalist
DX: K11.21 Acute sialoadenitis (principal); L03.211 Cellulitis of face; Z87.42 Personal history of other diseases of the female genital tract; L30.9 Dermatitis, unspecified; E86.0 Dehydration; H60.90 Unspecified otitis externa, unspecified ear; R13.10 Dysphagia, unspecified; Z88.0 Allergy status to penicillin; Z91.040 Latex allergy status; Z88.2 Allergy status to sulfonamides; Z79.899 Other long term (current) drug therapy; Z28.310 Unvaccinated for COVID-19
CPT/HCPCS: 36415; 70491; 80048; 80053; 83605; 85025; 85027; 86140; 87040; 96365; 96366; 96367; 96375; 96376; 99284

== ENCOUNTER → 2024-09-19 | Outpatient (CLI) | payer OTHER ==
--- NOTE | 2024-09-19 15:10 | MM ---
Reason for Exam: Clinical finding. Last mammogram was performed 4 year(s) and 5 month(s) ago. Indicated Problems: Lump or thickening of the right side for 1 Year(s). Patient History: Menarche at age 14. First Full-Term at age 22. Other cancer, age 36. Risk Values: Radha 5 year model risk: 0.8%. NCI Lifetime model risk: 8.3%. Prior Study Comparison: 04/23/2020 Bilateral Screening Mammogram, [facility]. Tissue Density: The breasts are heterogeneously dense, which may obscure small masses. Findings: Analyzed By CAD. No obvious new suspicious mass or worrisome cluster of microcalcification in either breast. Overall Assessment: Incomplete: need additional imaging evaluation, BI-RAD 0 Management: Diagnostic Breast Ultrasound of the right breast. Targeted ultrasound right breast the palpable abnormality. Results were given to the patient verbally at the time of exam. Patient should continue monthly self-breast exams. A clinical breast exam by your physician is recommended on an annual basis. This exam should not preclude additional follow-up of suspicious palpable abnormalities. Note on Radha scores and lifetime risk: 1. A Radha score greater than 3% is considered moderate risk. If this is the case, consider specialist referral to assess eligibility for a risk reducing agent. 2. If overall lifetime risk for the development of breast cancer is 20% or higher, the patient may qualify for future screening with alternating mammogram and breast MRI. [facility], , 09/19/2024 3:07 PM. Electronically signed and approved by: Aneudy Watson M.D.
--- NOTE | 2024-09-19 15:27 | USB ---
Reason for Exam: Clinical finding. Patient History: Menarche at age 14. First Full-Term at age 22. Other cancer, age 36. Risk Values: Radha 5 year model risk: 0.8%. NCI Lifetime model risk: 8.3%. Technique: Method: Targeted. Prior Study Comparison: 04/23/2020 Bilateral Screening Mammogram, [facility]. Findings: The area of palpable concern of the right breast, the axilla of the right breast and the retroareolar of the right breast were scanned. Targeted ultrasound. No solid or cystic masses are identified. No suspicious focal fluid collection. Right axillary region shows no suspicious adenopathy. Overall Assessment: Negative, BI-RAD 1 Management: Screening Mammogram of both breasts in 1 year. Return to routine follow-up. Manage patient's symptoms clinically. A clinical breast exam by your physician is recommended on an annual basis and results should be correlated with mammographic findings. This exam should not preclude additional follow-up of suspicious palpable abnormalities. Results were given to the patient verbally at the time of exam. [facility], , 09/19/2024 3:24 PM. Electronically signed and approved by: Aneudy Watson M.D.
== END | disposition home or self-care (01) ==
LOC: RADMAMWWP 14:39
PROVIDERS: ATTEND Obstetrics & Gynecology
DX: N64.4 Mastodynia (principal); N63.10 Unspecified lump in the right breast, unspecified quadrant; R92.333 Mammographic heterogeneous density, bilateral breasts
CPT/HCPCS: 77062; 77066

== ENCOUNTER → 2024-11-17 | Outpatient (CLI) | payer OTHER ==
[2024-11-17 13:15] VITALS: BP 122/82; PULSE 66; RESP 17; TEMP 98.8
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
== END ==
LOC: WWCWWP 12:54
PROVIDERS: ATTEND Surgery
DX: M95.4 Acquired deformity of chest and rib (principal); F12.90 Cannabis use, unspecified, uncomplicated; Z88.2 Allergy status to sulfonamides; Z91.040 Latex allergy status

== ENCOUNTER → 2024-12-18 | Outpatient (CLI) | payer OTHER ==
--- NOTE | 2024-12-18 18:49 | CT ---
EXAMINATION TYPE: CT chest w con DATE OF EXAM: 12/18/2024 6:40 PM COMPARISON: 10/02/2023 CLINICAL INDICATION: Female, 49 years old with history of R07.9 CHEST PAIN R22.2 CHEST MASS, LUMP; PH H, lump in chest, slightly to the right near right breast x 1 year TECHNIQUE: Multiple axial images were obtained through the chest. Sagittal and coronal reformats were created for review. MIP was performed on a separate workstation. Contrast used:100 ML mL of Isovue 300 with IV Contrast (None if empty) Oral contrast used: (None if empty) CT DLP: 238 mGycm, Automated exposure control for dose reduction was used. FINDINGS: LUNGS/ PLEURA: No focal consolidation, pneumothorax or pleural effusion. AIRWAY: Patent and unremarkable. HEART: Size within normal limits. No significant coronary artery calcifications. MEDIASTINUM: No gross evidence of adenopathy. VASCULATURE: No aortic aneurysm. MUSCULOSKELETAL: No acute osseous abnormalities SOFT TISSUES/LYMPH NODES: Unremarkable. LOWER NECK: No significant findings. UPPER ABDOMEN: No evidence for mass or lymphadenopathy. No palpable marker place for localization. IMPRESSION: 1. No evidence for mass or lymphadenopathy. No palpable marker place for localization. 2. No evidence for acute process. [facility], , 12/18/2024 6:47 PM
== END | disposition home or self-care (01) ==
LOC: RADCTMAIN 16:21
PROVIDERS: ATTEND Surgery
DX: R07.9 Chest pain, unspecified (principal); R22.2 Localized swelling, mass and lump, trunk
CPT/HCPCS: 71260; Q9967